=== PATIENT | male | born 1960 | race Caucasian/White ===

== ENCOUNTER → 2018-07-15 | Outpatient (CLI) | payer OTHER | LOC: RAD 16:01 | PROVIDERS: ATTEND Internal Medicine | DX: R60.9 Edema, unspecified (principal) | CPT/HCPCS: 93971 ==

== ENCOUNTER → 2019-03-31 | Day surgery (SDC) | payer OTHER ==
[2019-03-24 13:13] LABS: BASOPHILS % 0.2 % (0.0-1.0); EOSINOPHILS % 0.1 % (0.0-6.0); HEMATOCRIT 47.9 % (38.2-49.6); HEMOGLOBIN 17.6 g/dL (14.0-18.0); LYMPHOCYTES # (AUTO) 2.9 (1.0-3.2); LYMPHOCYTES % 16.1 % (18.0-39.1); MEAN CORPUSCULAR HEMOGLOBIN 35.6 pg (28-32); MEAN CORPUSCULAR HGB CONC 36.7 g/dL (31-35); MONOCYTES # (AUTO) 1.6 (0.2-0.8); MONOCYTES % 8.9 % (4.4-11.3); NEUTROPHILS # (AUTO) 13.2 (2.1-6.9); NEUTROPHILS % 73.2 % (38.7-80.0); PLATELET COUNT 203 x10e3/uL (140-360); RED BLOOD COUNT 4.94 x10e6/uL (4.3-5.7); RED CELL DISTRIBUTION WIDTH 11.9 % (11.7-14.4)
[2019-03-24 13:37] LABS: ALANINE AMINOTRANSFERASE 38 IU/L (0-55); ALBUMIN/GLOBULIN RATIO 1.1 (0.8-2.0); ALKALINE PHOSPHATASE 89 IU/L (40-150); ANION GAP 16.1 mmol/L (8-16); BLOOD UREA NITROGEN 15 mg/dL (7-26); BUN/CREATININE RATIO 14 (6-25); CALCIUM 10.2 mg/dL (8.4-10.2); CARBON DIOXIDE 29 mmol/L (22-29); CHLORIDE 94 mmol/L (98-107); CREATININE, SERUM 1.06 mg/dL (0.72-1.25); EST GLOMERULAR FILTRATION RATE > 60 ML/MIN (60-); GLUCOSE 135 mg/dL (74-118); POTASSIUM 4.1 mmol/L (3.5-5.1); SODIUM 135 mmol/L (136-145)
[2019-03-31] VITALS (8 sets, daily range): BP systolic 123–146; BP diastolic 79–89
[~2019-03-31] VITALS: Ht 182.9 cm; Wt 120.2 kg
[~2019-03-31] MED LIST: ALPRAZOLAM 0.5 MG TAB ONE; BENADRYL25 M1 PO; CENTRUM SILVER1 EAC3 PO; CETIRIZINE HCL10 MG PO; DIPHENHYDRAMINE HCL 25 MG CAP ONE; FENTANYL CITRATE/PF 100MCG/2 ML INJ ONE; FISH OIL 1,0001 EAC2 PO; FLONASE ALLERG9.9 ML; GLUCOSAMINE1000 MG PO; HEPARIN SOD (PORCINE) 1000 UNIT/ML 30ML ONE; HEPARIN SOD/SOD CHLORIDE 2,000 ML ONE; IOPAMIDOL 370 MG/ML 200 ML INFUS..BTL INJ ONE; LIDOCAINE HCL 2% LOCAL 20 ML VIAL ONE; MIDAZOLAM HCL 2 MG/2 ML VIAL ONE; NITROGLYCERIN/D5W 200 MCG/ML 250 ML ONE; SODIUM CHLORIDE 0.9% 1000ML 1,000 ML ONE; VERAPAMIL HCL 2.5 MG/ML 2 ML VIAL ONE; VITAMIN C1000 MG PO
--- OUTSIDE RECORDS SUMMARY | 2019-03-31 06:41 | XMS REPORT ---
Author Author [facility] Address Unknown Phone Unavailable Care Team Providers Care Teen Counselor Name Role Phone VERONA NAGY Unavailable Unavailable Problems This patient has no known problems. Allergies, Adverse Reactions, Alerts This patient has no known allergies or adverse reactions. Medications This patient has no known medications. Results Test Description Test Time Test Comments Text Results Atomic Results Result Comments ANKLE 3 + VIEWS RIGHT [place] [address] Patient Name: ALYSSA ALTAMIRANO MR #: [id number] : 1960 Age/Sex: 56/M Req #: [id number] [facility] Physician: Ordered by: VERONA NAGY MD Report #: [id number] Location: [facility] Room/Bed: Procedure: [id number] DX/ANKLE 3 + VIEWS RIGHT Exam Date: 03/28/17 Exam Time: 1500 REPORT STATUS: Signed PROCEDURE: X-RAY RIGHT ANKLE, COMPLETE TECHNIQUE: INDICATION: COMPARISON: None. FINDINGS: No acute displaced fracture or dislocation. Bone mineralization is within normal limits. No expansile lytic or sclerotic lesion. Soft tissues are unremarkable. CONCLUSION: No acute radiographic abnormality. Dictated by: Kali Rodriguez M.D. on 03/29/2017 at 7:42 Electronically approved by: Kali Rodriguez M.D. on 03/29/2017 at 7:42 Dictated By: KALI RODRIGUEZ MD 1 Transcribed By: HERMES on 03/29/17741 COPY TO: VERONA NAGY MD FOOT RIGHT COMPLETE [place] [address] Patient Name: ALYSSA ALTAMIRANO MR #: [id number] : 1960 Age/Sex: 56/M Req #: [id number] Adm Physician: Ordered by: VERONA NAGY MD Report #: [id number] Location: [facility] Room/Bed: Procedure: [id number] DX/FOOT RIGHT COMPLETE Exam Date: Exam Time: REPORT STATUS: Signed PROCEDURE: X-RAY RIGHT FOOT, COMPLETE COMPARISON: None. INDICATIONS: PAIN IN RIGHT ANKLE/FOOT FINDINGS: There are no fractures, dislocations, lytic or blastic lesions. The bones are well-mineralized. The soft-tissues are unremarkable. Mild valgus deformity of the second DIP joint. CONCLUSION: Mild valgus deformity of the second DIP joint. No acute osseous abnormality. Michael Alexander M.D. Dictated by: Michael Alexander M.D. on 03/28/2017 at 15:18 Electronically approved by: Michael Alexander M.D. on 03/28/2017 at 15:18 Dictated By: BALDEMAR ALEXANDER MD, MD 17 Transcribed By: HERMES on 03/28/171517 COPY TO: VERONA NAGY MD
--- NOTE | 2019-03-31 12:37 | Operative Report ---
DATE OF PROCEDURE: 03/31/2019 SURGEON: Elder Roland MD INDICATIONS: Coronary artery disease, abnormal stress test. PROCEDURES PERFORMED: 1. Left heart catheterization, selective coronary angiography. 2. Deployment of right wrist TR band. COMPLICATION: None. RECOMMENDATIONS: Medical therapy. DESCRIPTION OF PROCEDURE: Access was obtained in the right radial artery. A 5-Australian sheath was placed. Coronary angiography demonstrated 50% proximal left anterior descending artery stenosis. Remaining vessels had diffuse mild 20% to 30% stenosis. No critical occlusions were noted. No intervention necessary. LV end-diastolic pressure of 10. No gradient across the aortic valve on pullback. Right wrist sheath was removed. TR band applied. The patient discharged home the same day. Elder Roland MD KSB/MODL /[id number]
== END | disposition home or self-care (01) ==
LOC: CATH LAB 06:31
PROVIDERS: ATTEND Internal Medicine Interventional Cardiology
DX: I25.118 Atherosclerotic heart disease of native coronary artery with other forms of angina pectoris (principal); R94.39 Abnormal result of other cardiovascular function study; I87.2 Venous insufficiency (chronic) (peripheral); I10 Essential (primary) hypertension; Z01.812 Encounter for preprocedural laboratory examination; Z68.36 Body mass index [BMI] 36.0-36.9, adult; Z82.49 Family history of ischemic heart disease and other diseases of the circulatory system
CPT/HCPCS: 36415; 80053; 85025; 93454; C1769; C1887; J1644; J2001; J2250; J3010; J7030; Q9967; 99152

== ENCOUNTER 2019-07-02 20:00 | Observation (INO) | payer OTHER ==
[~2019-07-02] VITALS: Ht 182.9 cm; Wt 122.5 kg
[~2019-07-02 20:00] MED LIST changes: -ALPRAZOLAM 0.5 MG TAB ONE; -DIPHENHYDRAMINE HCL 25 MG CAP ONE; -FENTANYL CITRATE/PF 100MCG/2 ML INJ ONE; -HEPARIN SOD (PORCINE) 1000 UNIT/ML 30ML ONE; -HEPARIN SOD/SOD CHLORIDE 2,000 ML ONE; -IOPAMIDOL 370 MG/ML 200 ML INFUS..BTL INJ ONE; -LIDOCAINE HCL 2% LOCAL 20 ML VIAL ONE; -MIDAZOLAM HCL 2 MG/2 ML VIAL ONE; -NITROGLYCERIN/D5W 200 MCG/ML 250 ML ONE; -SODIUM CHLORIDE 0.9% 1000ML 1,000 ML ONE; -VERAPAMIL HCL 2.5 MG/ML 2 ML VIAL ONE
[2019-07-02] MEDS ORDERED: RIVAROXABAN 15 MG TABLET PO ONE (21:45)
--- NOTE | 2019-07-02 22:12 | Diagnostic Imaging Report ---
X-ray right knee 3 views HISTORY: Pain. COMPARISON: None available. FINDINGS: Bones: No acute displaced fracture. Osseous alignment is within normal limits. Joints: The joint spaces are well-maintained. Soft tissues: The soft tissues appear unremarkable. IMPRESSION: No acute radiographic osseous abnormality. Signed by: Alex Talavera DO on 07/02/2019 10:09 PM
[2019-07-02 22:21] LABS: BASOPHILS % 0.3 % (0.0-1.0); EOSINOPHILS # (AUTO) 0.1 (0.0-0.4); EOSINOPHILS % 0.6 % (0.0-6.0); HEMATOCRIT 42.9 % (38.2-49.6); HEMOGLOBIN 15.6 g/dL (14.0-18.0); LYMPHOCYTES % 22.7 % (18.0-39.1); MEAN CORPUSCULAR HEMOGLOBIN 33.9 pg (28-32); MEAN CORPUSCULAR HGB CONC 36.4 g/dL (31-35); MEAN CORPUSCULAR VOLUME 93.3 fL (81-99); MONOCYTES # (AUTO) 1.6 (0.2-0.8); MONOCYTES % 12.3 % (4.4-11.3); NEUTROPHILS # (AUTO) 8.3 (2.1-6.9); PLATELET COUNT 138 x10e3/uL (140-360); RED CELL DISTRIBUTION WIDTH 12.4 % (11.7-14.4)
[2019-07-02 22:36] LABS: ANION GAP 14.1 mmol/L (8-16); BLOOD UREA NITROGEN 12 mg/dL (7-26); BUN/CREATININE RATIO 13 (6-25); CALCIUM 9.1 mg/dL (8.4-10.2); CARBON DIOXIDE 29 mmol/L (22-29); CHLORIDE 90 mmol/L (98-107); CREATININE, SERUM 0.94 mg/dL (0.72-1.25); EST GLOMERULAR FILTRATION RATE > 60 ML/MIN (60-); GLUCOSE 145 mg/dL (74-118); POTASSIUM 4.1 mmol/L (3.5-5.1); SODIUM 129 mmol/L (136-145)
--- NOTE | 2019-07-03 01:14 | Diagnostic Imaging Report ---
EXAM: CT Chest WITH contrast (PE Protocol) INDICATION: DVT history of respiratory symptoms COMPARISON: None TECHNIQUE: Chest was scanned utilizing a multidetector helical scanner from the lung apex through the level of the diaphragm after administration of IV contrast. Thin section reconstructions were obtained with special concentration on the pulmonary arteries. Coronal and sagittal reformations were obtained. Pulmonary embolism protocol was performed. IV CONTRAST: 100 mL of Isovue 370 COMPLICATIONS: None RADIATION DOSE: Total DLP: 600 mGy*cm Estimated effective dose: (DLP x 0.014 x size factor) mSv CTDIvol has been reviewed. It is below the limits set by the Radiation Protocol Committee (RPC). Dose modulation, iterative reconstruction, and/or weight based adjustment of the mA/kV was utilized to reduce the radiation dose to as low as reasonably achievable. FINDINGS: LINES/ TUBES: None. LUNGS AND AIRWAYS: Nonocclusive filling defects within right lower lobe and upper lobe segmental pulmonary arteries. Airways are normal. Subtle reticular opacities along the mid/lower lung periphery, likely scarring/fibrosis. PLEURA: The pleural spaces are clear. HEART AND MEDIASTINUM: The thyroid gland is normal. No mediastinal, hilar or axillary lymphadenopathy. The heart is normal in size. There is no pericardial effusion. Calcific atherosclerosis aorta and major branches including the left anterior descending and left circumflex coronary arteries.. Main pulmonary artery measures 3.4 cm in diameter, mildly dilated, and the ascending aorta measures 4 cm, also mildly dilated the right ventricle is larger than the left ventricle. Mild flattening of the inner ventricular septum. UPPER ABDOMEN: Intact post surgical changes at the GE junction. BONES: There are degenerative changes in the spine. SOFT TISSUES: Unremarkable. IMPRESSION: Nonocclusive pulmonary emboli within right lower lobe and upper lobe segmental pulmonary arteries. There are also findings which can be seen with right heart strain. Borderline aneurysmal dilation of the ascending thoracic aorta. Finding of PE discussed with Dr. Covarrubias at 1:00 AM on 07/03/[address] Talavera via telephone. Signed by: Alex Talavera DO on 07/03/2019 1:11 AM
[2019-07-03] MEDS ORDERED: SODIUM CHLORIDE FLUSH 10 ML SYR INJ PRN (01:15)
--- NOTE | 2019-07-03 01:26 | NUR ---
Patient placed on hospital bed at this time.
[2019-07-03] MEDS ORDERED: IOPAMIDOL 370 MG/ML 200 ML INFUS..BTL INJ ONE (02:03)
[2019-07-03] MEDS ORDERED: SODIUM CHLORIDE 0.9% 50ML 50 ML ONE (02:04)
[2019-07-03] MEDS ORDERED: BREO ELLIPTA 11 EACH INH (02:11)
[2019-07-03] MEDS ORDERED: INDERAL XL120 MG PO (02:11)
[2019-07-03] MEDS ORDERED: PROAIR HFA INH8.5 GM INH (02:11)
[2019-07-03] MEDS ORDERED: LISINOPRIL-HCT1 EAC1 PO (02:11)
[2019-07-03] MEDS ORDERED: MONTELUKAST SOD10 MG PO (02:11)
[2019-07-03] MEDS ORDERED: TOBRAMYCIN-DEXAM5 ML OP (02:12)
--- NOTE | 2019-07-03 03:39 | NUR ---
Patient placed on CPAP at this time. No distress noted. RR even and unlabored. Patient has history of sleep apnea.
[2019-07-03 04:29] LABS: CREATINE KINASE MB 1.2 ng/mL (0-5.0)
--- NOTE | 2019-07-03 06:59 | NUR ---
Report to KARLY Harp.
--- NOTE | 2019-07-03 07:20 | NUR ---
desiree paged to see who is for cardiology consult for echo md desiree amin said no cardio consult needed for this pt; spoke with marissa in echo and will do echo first thing this am. jackson continuous pillowcase cutter to read.
[2019-07-03] MEDS ORDERED: MONTELUKAST SODIUM 10 MG TAB PO SCH (09:00)
[2019-07-03] MEDS: RIVAROXABAN 15 MG TABLET PO SCH ×2 (10:00→18:20)
--- NOTE | 2019-07-03 11:51 | History and Physical ---
REASON FOR ADMISSION: 1. Right leg DVT. 2. Pulmonary embolus. HISTORY OF PRESENT ILLNESS: The patient is a 58-year-old gentleman, in his usual state of health. He was getting up from chair where he had a right lower extremity pain and he felt like the leg seized up on him. He presented to the emergency room where he was noticed to have a DVT of the right leg proximally and then had a CT scan showing a small pulmonary embolus. He has been admitted for further evaluation. PAST MEDICAL HISTORY: Significant for hypertension. MEDICATIONS: See MAR. ALLERGIES: NONE. SOCIAL HISTORY: Nonsmoker, nondrinker. Lives at home with his . FAMILY HISTORY: Hypertension. PHYSICAL EXAMINATION: VITAL SIGNS: Temperature 96, pulse 74, blood pressure 126/74, sats 98% on room air. GENERAL: He is in no apparent distress. NECK: Supple. CARDIOVASCULAR: Regular rate and rhythm. LUNGS: Clear to auscultation bilaterally. ABDOMEN: Good bowel sounds. Soft, nontender. EXTREMITIES: No clubbing or cyanosis. NEUROLOGIC: Nonfocal. Right leg shows no swelling. ASSESSMENT AND PLAN: 1. Right leg deep vein thrombosis and pulmonary embolus. We will continue with Xarelto. 2. Hypertension. Continue with monitoring. 3. Hyponatremia. We will continue to monitor. 4. Leukocytosis. We will also continue to monitor. 5. Sleep apnea. Continue with his BiPAP. 6. Obesity. Continue with diet. Please see hospital chart for full details. MD ERICK Sierra/JESUS /[id number]
[2019-07-03 14:10] LABS: CREATINE KINASE MB 0.8 ng/mL (0-5.0)
[2019-07-03 15:39] LABS: ALANINE AMINOTRANSFERASE 15 IU/L (0-55); ALBUMIN 3.5 g/dL (3.5-5.0); ALBUMIN/GLOBULIN RATIO 1.1 (0.8-2.0); ALKALINE PHOSPHATASE 63 IU/L (40-150); ANION GAP 11.9 mmol/L (8-16); BLOOD UREA NITROGEN 10 mg/dL (7-26); BUN/CREATININE RATIO 10 (6-25); CALCIUM 9.3 mg/dL (8.4-10.2); CARBON DIOXIDE 31 mmol/L (22-29); CHLORIDE 92 mmol/L (98-107); CREATININE, SERUM 0.97 mg/dL (0.72-1.25); EST GLOMERULAR FILTRATION RATE > 60 ML/MIN (60-); GLUCOSE 136 mg/dL (74-118); POTASSIUM 3.9 mmol/L (3.5-5.1); SODIUM 131 mmol/L (136-145)
[2019-07-03 16:04] LABS: BASOPHILS % 0.3 % (0.0-1.0); EOSINOPHILS # (AUTO) 0.1 (0.0-0.4); EOSINOPHILS % 0.5 % (0.0-6.0); HEMATOCRIT 41.5 % (38.2-49.6); HEMOGLOBIN 14.6 g/dL (14.0-18.0); LYMPHOCYTES # (AUTO) 2.3 (1.0-3.2); LYMPHOCYTES % 23.6 % (18.0-39.1); MEAN CORPUSCULAR HEMOGLOBIN 33.8 pg (28-32); MEAN CORPUSCULAR HGB CONC 35.2 g/dL (31-35); MEAN CORPUSCULAR VOLUME 96.1 fL (81-99); MONOCYTES # (AUTO) 1.2 (0.2-0.8); MONOCYTES % 12.1 % (4.4-11.3); NEUTROPHILS % 62.5 % (38.7-80.0); PLATELET COUNT 130 x10e3/uL (140-360); RED BLOOD COUNT 4.32 x10e6/uL (4.3-5.7); RED CELL DISTRIBUTION WIDTH 12.7 % (11.7-14.4)
--- NOTE | 2019-07-03 19:15 | NUR ---
PT ARRIVED TO ROOM 213; PT AWAKE, ALERT, NO SIGNS OF DISTRESS. REPORT GIVEN TO PM RNLARRY.
--- NOTE | 2019-07-03 19:15 | NUR ---
Received patient from ER. Resp. even and unlabored. Skin warm and dry to touch. Pt AAOx3. Able to make needs known. at side. No SOB/resp. distress noted. Denies any pain/discomfort at this time. Telemetry #[address] Orientated to room. Denies any pain or discomfort at this time. Call light in reach. Bed in locked and low position. Non skid socks applies. will cont to monitor.
[2019-07-03 20:00] VITALS: BP 143/91
[2019-07-03 21:00] VITALS: BP 143/91
[2019-07-03 23:00] VITALS: BP 143/91
[2019-07-04] VITALS: BP 155/86
[2019-07-04 04:00] VITALS: BP 139/97
[2019-07-04 06:06] LABS: BASOPHILS # (AUTO) 0.1 (0.0-0.1); BASOPHILS % 0.5 % (0.0-1.0); EOSINOPHILS # (AUTO) 0.1 (0.0-0.4); EOSINOPHILS % 0.8 % (0.0-6.0); HEMATOCRIT 41.3 % (38.2-49.6); HEMOGLOBIN 14.3 g/dL (14.0-18.0); LYMPHOCYTES # (AUTO) 2.5 (1.0-3.2); LYMPHOCYTES % 25.5 % (18.0-39.1); MEAN CORPUSCULAR HEMOGLOBIN 33.6 pg (28-32); MEAN CORPUSCULAR HGB CONC 34.6 g/dL (31-35); MEAN CORPUSCULAR VOLUME 97.2 fL (81-99); MONOCYTES # (AUTO) 1.2 (0.2-0.8); MONOCYTES % 12.5 % (4.4-11.3); NEUTROPHILS # (AUTO) 5.8 (2.1-6.9); NEUTROPHILS % 59.6 % (38.7-80.0); PLATELET COUNT 119 x10e3/uL (140-360); RED BLOOD COUNT 4.25 x10e6/uL (4.3-5.7); RED CELL DISTRIBUTION WIDTH 12.6 % (11.7-14.4)
[2019-07-04 06:35] LABS: ANION GAP 13.2 mmol/L (8-16); BLOOD UREA NITROGEN 12 mg/dL (7-26); BUN/CREATININE RATIO 12 (6-25); CALCIUM 9.3 mg/dL (8.4-10.2); CARBON DIOXIDE 29 mmol/L (22-29); CHLORIDE 93 mmol/L (98-107); CREATININE, SERUM 1.04 mg/dL (0.72-1.25); EST GLOMERULAR FILTRATION RATE > 60 ML/MIN (60-); POTASSIUM 4.2 mmol/L (3.5-5.1); SODIUM 131 mmol/L (136-145)
[2019-07-04 06:42] LABS: GLUCOSE 126 mg/dL (74-118)
[2019-07-04 07:00] LABS: CREATINE KINASE MB 0.9 ng/mL (0-5.0)
--- NOTE | 2019-07-04 07:00 | NUR ---
RCD PT VAT BED PT IS ALERT AND ORIENTED RESTING ON BED ,IV PATENT BY SALINE FLUSH BED LOW AND LOCKED CALL LIGHT IN REACH
[2019-07-04] MEDS ORDERED: XARELTO10 MG PO ×2 (07:38→07:39)
[2019-07-04 07:42] VITALS: BP 135/88
[2019-07-04 08:30] VITALS: BP 135/88
[2019-07-04 09:12] LABS: PLATELET MORPHOLOGY COMMENT FEW LARGE
[2019-07-04 09:13] LABS: PLATELET ESTIMATE SLIGHTLY DECREASED
--- NOTE | 2019-07-04 10:10 | NUR ---
PT WENT HOME IN SAFE CONDITION WITH HIS
--- NOTE | 2019-07-05 04:45 | Discharge Summary ---
DISCHARGE DIAGNOSIS: 1. Deep vein thrombosis of right leg. 2. Pulmonary embolus. 3. Sleep apnea. HISTORY OF PRESENT ILLNESS AND HOSPITAL COURSE: See hospital chart for full details. The patient is a gentleman, who is getting up from chair where he notes right leg pain, noted to have right lower extremity DVT and had a CT scan showing a very small pulmonary embolus, even though the patient denies any chest pain or shortness of breath. The patient was started on Xarelto, was admitted, and had an echocardiogram done showed EF of 55%. The patient was feeling better at the time of discharge in regard to his right leg pain and swelling. He was discharged with Xarelto 15 mg b.i.d., for 21 days, then 20 mg once a day thereafter. He will follow up with me in two weeks and the other workup will be done as an outpatient. Please see hospital chart for full details. MD ERICK Sierra/JESUS /[id number]
== END 2019-07-04 10:06 | disposition home or self-care (01) ==
LOC: ER 20:00 → ERHOLD 07-03 01:12 → MED/SURG2 07-03 19:15
PROVIDERS: ADMIT Internal Medicine; ATTEND Internal Medicine
DX: I82.411 Acute embolism and thrombosis of right femoral vein (principal); I26.99 Other pulmonary embolism without acute cor pulmonale; I10 Essential (primary) hypertension; Z85.828 Personal history of other malignant neoplasm of skin; Z82.49 Family history of ischemic heart disease and other diseases of the circulatory system; E87.1 Hypo-osmolality and hyponatremia; D72.829 Elevated white blood cell count, unspecified; E66.9 Obesity, unspecified; Z68.36 Body mass index [BMI] 36.0-36.9, adult; G47.33 Obstructive sleep apnea (adult) (pediatric)
CPT/HCPCS: 36415 ×3; 71260; 73562; 80048 ×2; 80053; 82550 ×2; 82553 ×2; 84484 ×2; 85025 ×3; 93005; 93306; 93971; 94660 ×2; 99284; G0378 ×2; Q9967

== ENCOUNTER 2019-10-13 17:38 | Emergency (ER) | payer OTHER ==
[~2019-10-13] VITALS: Ht 182.9 cm; Wt 122.5 kg
[~2019-10-13 17:38] MED LIST changes: +BREO ELLIPTA 11 EACH INH; +INDERAL XL120 MG PO; +LISINOPRIL-HCT1 EAC1 PO; +MONTELUKAST SOD10 MG PO; +PROAIR HFA INH8.5 GM INH; +TOBRAMYCIN-DEXAM5 ML OP; +XARELTO10 MG PO
[2019-10-13] MEDS ORDERED: ASPIRIN 81 MG CHEW TAB PO ONE (18:45)
[2019-10-13 18:49] LABS: BASOPHILS # (AUTO) 0.1 (0.0-0.1); BASOPHILS % 0.5 % (0.0-1.0); EOSINOPHILS % 0.2 % (0.0-6.0); HEMATOCRIT 43.2 % (38.2-49.6); HEMOGLOBIN 15.5 g/dL (14.0-18.0); LYMPHOCYTES # (AUTO) 3.3 (1.0-3.2); LYMPHOCYTES % 21.7 % (18.0-39.1); MEAN CORPUSCULAR HGB CONC 35.9 g/dL (31-35); MEAN CORPUSCULAR VOLUME 97.5 fL (81-99); MONOCYTES # (AUTO) 1.8 (0.2-0.8); MONOCYTES % 12.2 % (4.4-11.3); NEUTROPHILS # (AUTO) 9.6 (2.1-6.9); NEUTROPHILS % 63.4 % (38.7-80.0); PLATELET COUNT 234 x10e3/uL (140-360); RED BLOOD COUNT 4.43 x10e6/uL (4.3-5.7)
[2019-10-13 18:54] LABS: INR 2.17; PARTIAL THROMBOPLASTIN TIME 30.9 seconds (23.8-35.5); PROTHROMBIN TIME 25.8 seconds (11.9-14.5)
[2019-10-13 19:01] LABS: ALBUMIN 3.9 g/dL (3.5-5.0); ALBUMIN/GLOBULIN RATIO 1.1 (0.8-2.0); ANION GAP 20.1 mmol/L (8-16); CALCIUM 9.7 mg/dL (8.4-10.2); CREATININE, SERUM 2.87 mg/dL (0.72-1.25); POTASSIUM 4.1 mmol/L (3.5-5.1)
[2019-10-13 19:07] LABS: CREATINE KINASE MB 1.1 ng/mL (0-5.0)
--- NOTE | 2019-10-13 19:35 | Diagnostic Imaging Report ---
Examination: Single AP view of the chest. COMPARISON: None. INDICATION: Very low blood pressure, chest pain IMPRESSION: 1. Lines and Tubes: None 2. Lungs are grossly clear. No consolidation or effusion. 3. Cardiomediastinal silhouette is normal. Pulmonary vasculature is normal. 4. No acute bony abnormalities. Signed by: Dr. Jose Stearns M.D. on 10/13/2019 7:31 PM
[2019-10-13] MEDS ORDERED: SODIUM CHLORIDE 0.9% 1000ML 1,000 ML ONE (19:41)
[2019-10-13] MEDS ORDERED: CEFTRIAXONE SOD 1 GM/NS 50 ML 50 ML IV ONE (19:45)
[2019-10-13] MEDS ORDERED: SODIUM CHLORIDE 0.9% 1000ML 1,000 ML IV ONE (19:45)
--- NOTE | 2019-10-13 20:03 | Emergency Department Note ---
History of Present Illnes History of Present Illness Chief Complaint: General Medicine Complaints History of Present Illness This is a 59 year old male FROM HOME WITH COMPLAINTS OF COUGH, AHCES AND PAINS, AND SHORTNESS OF BREATH X 2 MONTHS; PATIENT STATES HE WAS DIAGNOSED WITH A BLOOD CLOT IN HIS RIGHT LEG A COUPLE OF MONTHS AGO. PATIENT STATES HE HAS ALSO BEEN TREATED FOR SINUS ISSUES RECENTLY. PATIENT STATES THAT TODAY HE HAS BEEN FEELING WORSE THAN USUAL, . Historian: Patient Arrival Mode: Car Onset (how long ago): hour(s) (4) Location: all over Quality: weak, more sob, increased cough Radiation: Reports non-radiation Severity: moderate Onset quality: sudden (4) Duration (how long): hour(s) (4) Timing of current episode: constant Progression: unchanged Context: Reports hx of DVT/PE Relieving factors: none Exacerbating factors: none Associated symptoms: Reports chest pain, Reports cough, Reports malaise, Reports shortness of breath, Reports weakness Treatments prior to arrival: none Past Medical/Family History Physician Review I have reviewed the patient's past medical and family history. Any updates have been documented here. Past Medical History Recent Fever: No Clinical Suspicion of Infectio: Yes New/Unexplained Change in Ment: No Past Medical History: Hypertension, Cancer, DVT/PE Other Medical History: SINUS ISSUES SKIN CA Past Surgical History: Hernia Repair, Cataract Removal Other Surgery: 2 Hernia repairs, Skin Cancer removal from left ear, UPPP(removal of soft palate) Social History Smoking Cessation: Never Smoker Alcohol Use: None Any Illegal Drug Use: No Family History Family history of heart diseas: No Other Last Tetanus: UNKNOWN Review of Systems Review of Systems Constitutional: Reports as per HPI EENTM: Reports no symptoms Cardiovascular: Reports as per HPI Respiratory: Reports as per HPI Gastrointestinal: Reports no symptoms Genitourinary: Reports no symptoms Musculoskeletal: Reports no symptoms Integumentary: Reports no symptoms Neurological: Reports no symptoms Psychological: Reports no symptoms Endocrine: Reports no symptoms Hematological/Lymphatic: Reports no symptoms Physical Exam Related Data Allergies: Coded Allergies: No Known Drug Allergies (Verified Allergy, Unknown, 10/13/19) Triage Vital Signs Vital Signs Date Time Temp Pulse Resp B/P (MAP) Pulse Ox O2 Delivery O2 Flow Rate FiO2 10/13/19 18:01 97.2 109 18 106/85 95 Vital signs reviewed: Yes Physical Exam CONSTITUTIONAL Constitutional: Present well-developed, Present well-nourished HENT HENT: Present normocephalic, Present atraumatic, Present oropharynx clear/moist, Present nose normal HENT L/R: Present left ext ear normal, Present right ext ear normal EYES Eyes: Reports PERRL, Reports conjunctivae normal NECK Neck: Present ROM normal PULMONARY Pulmonary: Present effort normal, Present other (breath decresaed mildly bilateral, mild tachypnea) CARDIOVASCULAR Cardiovascular: Present regular rhythm, Present heart sounds normal, Present capillary refill normal, Present tachycardia (115) GASTROINTESTINAL Abdominal: Present soft, Present nontender, Present bowel sounds normal GENITOURINARY Genitourinary: Present exam deferred SKIN Skin: Present warm, Present dry MUSCULOSKELETAL Musculoskeletal: Present ROM normal NEUROLOGICAL Neurological: Present alert, Present oriented x 3, Present no gross motor or sensory deficits PSYCHOLOGICAL Psychological: Present mood/affect normal, Present judgement normal Results Laboratory Result Diagram: 10/13/19 1814 10/13/19 1814 Laboratory Laboratory Tests Test 10/13/19 18:14 White Blood Count 15.07 x10e3/uL (4.8-10.8) Red Blood Count 4.43 x10e6/uL (4.3-5.7) Hemoglobin 15.5 g/dL (14.0-18.0) Hematocrit 43.2 % (38.2-49.6) Mean Corpuscular Volume 97.5 fL (81-99) Mean Corpuscular Hemoglobin 35.0 pg (28-32) Mean Corpuscular Hemoglobin Concent 35.9 g/dL (31-35) Red Cell Distribution Width 14.0 % (11.7-14.4) Platelet Count 234 x10e3/uL (140-360) Neutrophils (%) (Auto) 63.4 % (38.7-80.0) Lymphocytes (%) (Auto) 21.7 % (18.0-39.1) Monocytes (%) (Auto) 12.2 % (4.4-11.3) Eosinophils (%) (Auto) 0.2 % (0.0-6.0) Basophils (%) (Auto) 0.5 % (0.0-1.0) Neutrophils # (Auto) 9.6 (2.1-6.9) Lymphocytes # (Auto) 3.3 (1.0-3.2) Monocytes # (Auto) 1.8 (0.2-0.8) Eosinophils # (Auto) 0.0 (0.0-0.4) Basophils # (Auto) 0.1 (0.0-0.1) Absolute Immature Granulocyte (auto 0.30 x10e3/uL (0-0.1) Prothrombin Time 25.8 seconds (11.9-14.5) Prothromb Time International Ratio 2.17 Activated Partial Thromboplast Time 30.9 seconds (23.8-35.5) Sodium Level 136 mmol/L (136-145) Potassium Level 4.1 mmol/L (3.5-5.1) Chloride Level 97 mmol/L (98-107) Carbon Dioxide Level 23 mmol/L (22-29) Anion Gap 20.1 mmol/L (8-16) Blood Urea Nitrogen 28 mg/dL (7-26) Creatinine 2.87 mg/dL (0.72-1.25) Estimat Glomerular Filtration Rate 23 ML/MIN (60-) BUN/Creatinine Ratio 10 (6-25) Glucose Level 147 mg/dL (74-118) Calcium Level 9.7 mg/dL (8.4-10.2) Total Bilirubin 1.1 mg/dL (0.2-1.2) Aspartate Amino Transf (AST/SGOT) 25 IU/L (5-34) Alanine Aminotransferase (ALT/SGPT) 29 IU/L (0-55) Alkaline Phosphatase 55 IU/L (40-150) Creatine Kinase 51 IU/L (30-200) Creatine Kinase MB 1.10 ng/mL (0-5.0) Troponin I 0.011 ng/mL (0-0.300) B-Type Natriuretic Peptide 55.5 pg/mL (0-100) Total Protein 7.5 g/dL (6.5-8.1) Albumin 3.9 g/dL (3.5-5.0) Globulin 3.6 g/dL (2.3-3.5) Albumin/Globulin Ratio 1.1 (0.8-2.0) Lab results reviewed: Yes Imaging Imaging results reviewed: Yes Impressions Examination: Single AP view of the chest. COMPARISON: None. INDICATION: Very low blood pressure, chest pain IMPRESSION: 1. Lines and Tubes: None 2. Lungs are grossly clear. No consolidation or effusion. 3. Cardiomediastinal silhouette is normal. Pulmonary vasculature is normal. 4. No acute bony abnormalities. Signed by: Dr. Isaak Escobedo M.D. on 10/13/2019 7:31 PM Dictated By: ISAAK ESCOBEDO MD 30 Transcribed By: JORGE A on 10/13/191930 Procedures 12 Lead ECG Interpretation ECG Interpretation : ECG: ECG 1 Electrical Equipment Assembler: Interpreted by ED physician Date: Oct 13, 2019 Time: 19:10 Rhythm: sinus tachycardia Rate: tachycardia BPM: 111 QRS axis: normal ST segments normal: No (non specific changes) T waves normal: No T wave inversion: V1, V2, V3, V4, V5 Other findings: no other findings Clinical Impression: abnormal ECG Assessment & Plan Medical Decision Making MDM Patient with history of DVT presents with sudden worsening of cough shortness of breath weakness starting today about 4 hours ago. Denies fever. at 1934 pt has following sirs criteria heart rate greater than 90, rr greater than 20 wbc 15k, sepsis work up initiated CBC, CMP, cardiac enzymes, lactic acid, blood cultures, EKG, Covid 19, ordered to eval for myocardial infarction, pulmonary embolus, pneumonia, pulmonary edema, Covid 19, electrolyte abnormality, sepsis. Cefepime 2 g IV ordered, 1 L normal saline IV ordered. no beds at this facility pt will require transfer for further evaluation and treatment i spoke with dr bee at [facility], he accepts pt for transfer Assessment & Plan Final Impression: (1) Acute renal insufficiency (2) Dyspnea (3) Leukocytosis Depart Disposition: TRANS TO OTHER [facility] F[facility] Last Vital Signs Date Time Temp Pulse Resp B/P (MAP) Pulse Ox O2 Delivery O2 Flow Rate FiO2 10/13/19 19:15 99.1 108 23 101/83 96 Home Meds Reported Medications Rivaroxaban (XARELTO) 10 Mg Tablet, 15 MG PO BID, #42 07/04/19 Rivaroxaban (XARELTO) 10 Mg Tablet, 15 MG PO BID, #42 07/04/19 Propranolol HCl (Inderal Xl) 120 Mg Cap.er.24h, 1 TAB PO HS 07/03/19 Lisinopril/Hydrochlorothiazide (LISINOPRIL-HCTZ 20-25 MG TAB) 1 Each Tablet, 1 TAB PO DAILY 07/03/19 Montelukast Sodium (MONTELUKAST SODIUM) 10 Mg Tablet, 10 MG PO DAILY 07/03/19 Albuterol Sulf* (PROAIR HFA INHALER*) 8.5 Gm Inh, 1 INH INH DAILY 07/03/19 Fluticasone/Vilanterol (Breo Ellipta 100-25 Mcg INH) 1 Each Blst.w.dev, 1 INH INH Q4HR PRN for SHORTNESS OF BREATH 07/03/19 Fluticasone Propionate (Flonase Allergy Relief) 9.9 Ml [place].susp, 1 SPRAY NA DAILY 03/24/19 Glucosamine Sulfate 2KCL (GLUCOSAMINE) 1,000 Mg Tablet, 1500 MG PO DAILY 03/24/19 Ascorbic Acid (VITAMIN C) 1,000 Mg Tablet, 1000 MG PO DAILY 03/24/19 Medications in the ED Aspirin 81 mg PRN ONCE PO ; Start 10/13/19 at 18:45; Stop 10/13/19 at 18:46; Status DC Ceftriaxone Sodium 50 ml @ 100 mls/hr ONCE ONCE IV ; Start 10/13/19 at 19:45; Stop 10/13/19 at 20:14 Sodium Chloride 1,000 ml @ 999 mls/hr Q1H1M ONCE IV Last administered on 10/13/19at 19:49; Admin Dose 999 MLS/HR; Start 10/13/19 at 19:45; Stop 10/13/19 at 20:45 Sodium Chloride 1,000 ml @ ud STK-MED ONCE .ROUTE ; Start 10/13/19 at 19:41; Stop 10/13/19 at 19:36; Status DC JAIDA CLEMENS MD Oct 13, 2019 20:03
--- NOTE | 2019-10-13 20:18 | NUR ---
{null, Transfer initiated to [facility] at 2015 }
--- NOTE | 2019-10-13 20:43 | NUR ---
{null, Doc to Doc at this time }
[2019-10-13 22:20] VITALS: BP 124/83
--- NOTE | 2019-10-13 23:37 | NUR ---
{null, [facility] CALLED FOR TRANSPORT 20MIN ETA }
== END 2019-10-14 00:32 | disposition other institution (70) ==
LOC: ER 17:38
DX: R06.00 Dyspnea, unspecified (principal); N28.9 Disorder of kidney and ureter, unspecified; D72.829 Elevated white blood cell count, unspecified; I10 Essential (primary) hypertension; Z86.718 Personal history of other venous thrombosis and embolism; Z85.828 Personal history of other malignant neoplasm of skin
CPT/HCPCS: 36415; 71045; 80053; 82550; 82553; 83605; 83880; 84484; 85025; 85610; 85730; 87040; 87635; 99284; J0696; J7030

== ENCOUNTER 2020-04-08 14:36 | Inpatient (IN) | payer OTHER ==
[~2020-04-08] VITALS: Ht 185.4 cm; Wt 132.0 kg
[2020-04-08 15:40] LABS: BASOPHILS # (AUTO) 0.1 (0.0-0.1); BASOPHILS % 0.4 % (0.0-1.0); EOSINOPHILS # (AUTO) 0.1 (0.0-0.4); EOSINOPHILS % 0.5 % (0.0-6.0); HEMATOCRIT 44.8 % (38.2-49.6); HEMOGLOBIN 15.9 g/dL (14.0-18.0); LYMPHOCYTES # (AUTO) 1.9 (1.0-3.2); LYMPHOCYTES % 8.6 % (18.0-39.1); MEAN CORPUSCULAR HEMOGLOBIN 35.5 pg (28-32); MEAN CORPUSCULAR HGB CONC 35.5 g/dL (31-35); MONOCYTES # (AUTO) 1.8 (0.2-0.8); MONOCYTES % 8.1 % (4.4-11.3); PLATELET COUNT 95 x10e3/uL (140-360); RED BLOOD COUNT 4.48 x10e6/uL (4.3-5.7); RED CELL DISTRIBUTION WIDTH 13.6 % (11.7-14.4)
[2020-04-08 16:06] LABS: ALANINE AMINOTRANSFERASE 30 IU/L (0-55); ALBUMIN/GLOBULIN RATIO 0.9 (0.8-2.0); ALKALINE PHOSPHATASE 51 IU/L (40-150); ANION GAP 13.6 mmol/L (8-16); BLOOD UREA NITROGEN 21 mg/dL (7-26); BUN/CREATININE RATIO 16 (6-25); CARBON DIOXIDE 27 mmol/L (22-29); CHLORIDE 87 mmol/L (98-107); CREATINE KINASE 303 IU/L (30-200); CREATININE, SERUM 1.31 mg/dL (0.72-1.25); EST GLOMERULAR FILTRATION RATE 56 ML/MIN (60-); GLUCOSE 212 mg/dL (74-118); POTASSIUM 3.6 mmol/L (3.5-5.1); SODIUM 124 mmol/L (136-145)
[2020-04-08 16:10] LABS: CALCIUM 6.9 mg/dL (8.4-10.2)
[2020-04-08] MEDS ORDERED: CEFTRIAXONE SOD 1 GM/NS 50 ML 50 ML IV ONE (16:45)
[2020-04-08] MEDS ORDERED: SODIUM CHLORIDE 0.9% 1000ML 1,000 ML IV STA (16:50)
[2020-04-08] MEDS ORDERED: CALCIUM GLUCONATE 10% INJ 4.65 MEQ in SODIUM CHLORIDE 0.9% 50ML 50 ML IV ONE ×2 (17:00→17:30)
[2020-04-08] MEDS ORDERED: SODIUM CHLORIDE 0.9% 100 ML ONE (17:12)
[2020-04-08] MEDS ORDERED: IOPAMIDOL 370 MG/ML 200 ML INFUS..BTL INJ ONE (17:12)
[2020-04-08 20:40] LABS: CLARITY,URINE SL CLOUDY (CLEAR); COLOR,URINE ORANGE (YELLOW); LEUKOCYTE ESTERASE ,URINE NEGATIVE (NEGATIVE); NITRITE,URINE POSITIVE (NEGATIVE); PROTEIN,URINE DIPSTICK 2+ (NEGATIVE)
[2020-04-08 20:41] LABS: KETONES,URINE 2+ (NEGATIVE); URINE UROBILINOGEN 0.2 mg/dL (0.2 - 1)
[2020-04-08 20:56] LABS: BACTERIA,URINE RARE /HPF; RBC,URINE 0-5 /HPF (0-5)
[2020-04-08 21:15] VITALS: BP 135/85
[2020-04-08 21:30] VITALS: BP 118/84
[2020-04-08] MEDS: SODIUM CHLORIDE 0.9% 1000ML 1,000 ML IV SCH (21:36)
[2020-04-09] VITALS: BP 130/86
[2020-04-09 04:00] VITALS: BP 130/87
[2020-04-09] MEDS: SODIUM CHLORIDE 0.9% 1000ML 1,000 ML IV SCH (05:01)
[2020-04-09] MEDS: CEFTRIAXONE SOD 1 GM/NS 50 ML 50 ML IV SCH (05:02)
[2020-04-09 06:39] LABS: BASOPHILS # (AUTO) 0.1 (0.0-0.1); BASOPHILS % 0.3 % (0.0-1.0); EOSINOPHILS % 0.2 % (0.0-6.0); HEMOGLOBIN 13.9 g/dL (14.0-18.0); LYMPHOCYTES # (AUTO) 1.9 (1.0-3.2); LYMPHOCYTES % 8.4 % (18.0-39.1); MEAN CORPUSCULAR HEMOGLOBIN 35.2 pg (28-32); MEAN CORPUSCULAR HGB CONC 35.6 g/dL (31-35); MEAN CORPUSCULAR VOLUME 98.7 fL (81-99); MONOCYTES % 8.8 % (4.4-11.3); NEUTROPHILS # (AUTO) 18.3 (2.1-6.9); NEUTROPHILS % 80.8 % (38.7-80.0); PLATELET COUNT 82 x10e3/uL (140-360); RED BLOOD COUNT 3.95 x10e6/uL (4.3-5.7); RED CELL DISTRIBUTION WIDTH 13.5 % (11.7-14.4)
[2020-04-09 07:04] LABS: ALANINE AMINOTRANSFERASE 24 IU/L (0-55); ALBUMIN 2.5 g/dL (3.5-5.0); ALBUMIN/GLOBULIN RATIO 0.8 (0.8-2.0); ALKALINE PHOSPHATASE 41 IU/L (40-150); AMYLASE 50 U/L (25-125); ANION GAP 13.8 mmol/L (8-16); BLOOD UREA NITROGEN 23 mg/dL (7-26); BUN/CREATININE RATIO 21 (6-25); CARBON DIOXIDE 23 mmol/L (22-29); CHLORIDE 91 mmol/L (98-107); CREATININE, SERUM 1.12 mg/dL (0.72-1.25); EST GLOMERULAR FILTRATION RATE > 60 ML/MIN (60-); GLUCOSE 192 mg/dL (74-118); LIPASE 123 U/L (8-78); MAGNESIUM 1.3 MG/DL (1.3-2.1); POTASSIUM 3.8 mmol/L (3.5-5.1); SODIUM 124 mmol/L (136-145)
[2020-04-09 07:07] LABS: CALCIUM 6.2 mg/dL (8.4-10.2)
[2020-04-09 08:00] VITALS: BP_SYST 124; BP_SYST 130; BP_DIAS 86; BP_DIAS 87
[2020-04-09] MEDS ORDERED: BENZONATATE 100 MG CAP PO PRN (08:30)
[2020-04-09] MEDS ORDERED: CALCIUM GLUCONATE 10% INJ 4.65 MEQ in SODIUM CHLORIDE 0.9% 50ML 50 ML IV ONE (09:00)
[2020-04-09] MEDS ORDERED: BENZONATATE 100 MG CAP PO SCH (09:00)
[2020-04-09] MEDS ORDERED: SODIUM CHLORIDE 0.9% 100 ML ONE (12:11)
[2020-04-09] MEDS ORDERED: GADOBENATE DIMEGLUMINE 1 ML IV ONE (12:11)
[2020-04-09] MEDS ORDERED: LACTATED RINGER'S 1,000 ML INJ SCH (13:45)
[2020-04-09] MEDS: ALBUTEROL/IPRATROPIUM 3 ML NEB NEB SCH ×3 (14:50→22:15)
[2020-04-09 16:00] VITALS: BP 129/82
[2020-04-09] MEDS ORDERED: COSYNTROPIN 0.25 MG/VIAL VIAL INJ STA (16:39)
[2020-04-09] MEDS ORDERED: LACTATED RINGER'S 1,000 ML ONE (17:34)
[2020-04-09] MEDS ORDERED: MAGNESIUM SULF 1GRAM/DEXTROSE 100 ML IV SCH (18:00)
[2020-04-09] MEDS ORDERED: SODIUM CHLORIDE 0.9% IV PRN (18:00)
[2020-04-09] MEDS ORDERED: CALCIUM GLUCONATE IV PRN (18:00)
[2020-04-09] MEDS: LACTATED RINGER'S 1,000 ML INJ SCH (18:04)
[2020-04-09] MEDS ORDERED: CALCIUM CARBONATE 500 MG CHEWABLE TABS PO SCH (18:30)
[2020-04-09] MEDS: CALCIUM GLUCONATE 10% INJ 4.65 MEQ in SODIUM CHLORIDE 0.9% 50ML 50 ML IV SCH ×2 (18:37→22:29)
[2020-04-09] MEDS: CALCITRIOL 0.25 MCG CAP PO SCH (18:37)
[2020-04-09 18:46] LABS: FREE THYROXINE INDEX 2.2195 (1.4-3.8); THYROID STIMULATING HORMONE 1.2 uIU/mL (0.350-4.940)
[2020-04-09 20:00] VITALS: BP 167/105
[2020-04-09] MEDS: MORPHINE SULFATE INJ 4 MG/ML INJ 1ML IV PRN (20:14)
[2020-04-09 21:00] VITALS: BP 167/105
[2020-04-09] MEDS ORDERED: ZOLPIDEM TARTRATE 5 MG TAB PO PRN (21:00)
[2020-04-09] MEDS: MAGNESIUM SULF 1GRAM/DEXTROSE 100 ML IV SCH ×2 (21:13→22:29)
[2020-04-09] MEDS: METOPROLOL TARTRATE INJ 1 MG/ML VIAL IV SCH (21:13)
[2020-04-09 21:32] LABS: CLARITY,URINE SL CLOUDY (CLEAR); COLOR,URINE AMBER (YELLOW); KETONES,URINE 2+ (NEGATIVE); LEUKOCYTE ESTERASE ,URINE NEGATIVE (NEGATIVE); NITRITE,URINE POSITIVE (NEGATIVE); PROTEIN,URINE DIPSTICK 1+ (NEGATIVE); URINE UROBILINOGEN 0.2 mg/dL (0.2 - 1)
[2020-04-09 21:41] LABS: BACTERIA,URINE MANY /HPF; EPITHELIAL CELLS,URINE FEW /LPF; RBC,URINE 0-5 /HPF (0-5); WBC,URINE (MAN) 0-5 /HPF (0-5)
[2020-04-10] VITALS (9 sets, daily range): BP systolic 139–168; BP diastolic 78–116
[2020-04-10] MEDS: CEFTRIAXONE SOD 1 GM/NS 50 ML 50 ML IV SCH (01:55)
[2020-04-10] MEDS: LACTATED RINGER'S 1,000 ML INJ SCH (01:56)
[2020-04-10] MEDS ORDERED: HYDROXYZINE HCL 50 MG/ML VIAL IM PRN (04:00)
[2020-04-10] MEDS ORDERED: PROMETHAZINE HCL (IM) 25 MG/ML VIAL IM ONE (04:15)
[2020-04-10] MEDS: LORAZEPAM INJ 2 MG/ML VIAL IV PRN ×3 (04:19→23:39)
[2020-04-10] MEDS ORDERED: SODIUM CHLORIDE 0.9% 1000ML 1,000 ML ONE (04:20)
[2020-04-10] MEDS ORDERED: THIAMINE HCL INJ 100 MG/ML 2ML VIAL ONE (04:20)
[2020-04-10] MEDS ORDERED: FOLIC ACID 5 MG/ML VIAL ONE (04:22)
[2020-04-10] MEDS ORDERED: MULTIVITAMINS INJECTION ONE (04:22)
[2020-04-10] MEDS: MULTIVITAMINS- 12 INJECTION 10 ML, FOLIC ACID MDV 5 MG, THIAMINE HCL INJ 100 MG in SODI... IV SCH ×2 (04:42→23:24)
[2020-04-10] MEDS: ENOXAPARIN SOD INJ 120 MG/0.8 ML SYR SC SCH ×2 (04:59→17:53)
[2020-04-10] MEDS: METOPROLOL TARTRATE INJ 1 MG/ML VIAL IV SCH ×3 (04:59→20:21)
[2020-04-10] MEDS: CALCIUM GLUCONATE 10% INJ 4.65 MEQ in SODIUM CHLORIDE 0.9% 50ML 50 ML IV SCH ×3 (05:00→17:53)
[2020-04-10 05:12] LABS: BASOPHILS % 0.2 % (0.0-1.0); EOSINOPHILS % 0.2 % (0.0-6.0); HEMATOCRIT 36.1 % (38.2-49.6); HEMOGLOBIN 12.4 g/dL (14.0-18.0); LYMPHOCYTES % 6.6 % (18.0-39.1); MEAN CORPUSCULAR HEMOGLOBIN 35.3 pg (28-32); MEAN CORPUSCULAR HGB CONC 34.3 g/dL (31-35); MEAN CORPUSCULAR VOLUME 102.8 fL (81-99); MONOCYTES # (AUTO) 1.4 (0.2-0.8); MONOCYTES % 9.3 % (4.4-11.3); NEUTROPHILS # (AUTO) 12.6 (2.1-6.9); NEUTROPHILS % 82.6 % (38.7-80.0); PLATELET COUNT 71 x10e3/uL (140-360); RED BLOOD COUNT 3.51 x10e6/uL (4.3-5.7); RED CELL DISTRIBUTION WIDTH 13.3 % (11.7-14.4)
[2020-04-10 06:18] LABS: ALANINE AMINOTRANSFERASE 21 IU/L (0-55); ALBUMIN 2.3 g/dL (3.5-5.0); ALBUMIN/GLOBULIN RATIO 0.7 (0.8-2.0); ALKALINE PHOSPHATASE 53 IU/L (40-150); ANION GAP 16.3 mmol/L (8-16); BLOOD UREA NITROGEN 17 mg/dL (7-26); BUN/CREATININE RATIO 22 (6-25); CALCIUM 7.1 mg/dL (8.4-10.2); CARBON DIOXIDE 20 mmol/L (22-29); CHLORIDE 90 mmol/L (98-107); CREATININE, SERUM 0.76 mg/dL (0.72-1.25); EST GLOMERULAR FILTRATION RATE > 60 ML/MIN (60-); GLUCOSE 151 mg/dL (74-118); POTASSIUM 3.3 mmol/L (3.5-5.1); SODIUM 123 mmol/L (136-145)
[2020-04-10] MEDS ORDERED: POTASSIUM CHLORIDE 20MEQ/100ML 200 ML IV ONE (06:30)
[2020-04-10] MEDS ORDERED: MAGNESIUM SULFATE 2GM/50ML 50 ML IV ONE ×2 (06:30→10:45)
[2020-04-10 06:36] LABS: CHOL/HDL RATIO 4.9 (3.9-4.7)
[2020-04-10] MEDS: ALBUTEROL/IPRATROPIUM 3 ML NEB NEB SCH ×3 (07:10→20:40)
[2020-04-10] MEDS: MEROPENEM 1GM 100 ML IV SCH ×3 (08:12→20:21)
[2020-04-10] MEDS: FLUTICASONE PROPIONATE NASAL SPRAY NS SCH ×2 (09:00→17:00)
[2020-04-10] MEDS: MORPHINE SULFATE INJ 4 MG/ML INJ 1ML IV PRN ×2 (10:26→20:22)
[2020-04-10] MEDS: KCL 20MEQ/.9 SOD CHL 1,000 ML IV SCH ×3 (10:26→20:22)
[2020-04-10] MEDS: ONDANSETRON HCL INJ 2MG/ML 2ML 2 MG/ML VIAL IV PRN (10:26)
[2020-04-10] MEDS ORDERED: CALCIUM GLUCONATE IV SCH ×2 (11:53→23:26)
[2020-04-10] MEDS ORDERED: SODIUM CHLORIDE 0.9% IV SCH ×2 (11:53→23:26)
[2020-04-10] MEDS ORDERED: MEROPENEM 1GM 100 ML IV SCH (14:00)
[2020-04-10] MEDS ORDERED: SODIUM CHLORIDE 0.9% 50ML 50 ML ONE (17:28)
[2020-04-10] MEDS ORDERED: IOPAMIDOL 370 MG/ML 200 ML INFUS..BTL INJ ONE (17:28)
[2020-04-10] MEDS ORDERED: HYDRALAZINE HCL 20 MG/ML VIAL IV PRN (20:30)
[2020-04-10] MEDS ORDERED: THIAMINE HCL INJ 100 MG/ML 2ML VIAL IV ONE (21:45)
[2020-04-10] MEDS: HYDRALAZINE HCL 20 MG/ML VIAL IV PRN (23:04)
[2020-04-10] MEDS ORDERED: CALCIUM GLUCONATE 10% INJ 0.465 MEQ/ML VIAL ONE ×2 (23:18→23:49)
[2020-04-11] VITALS (8 sets, daily range): BP systolic 138–168; BP diastolic 84–100
[2020-04-11] MEDS: HYDRALAZINE HCL 20 MG/ML VIAL IV PRN (03:02)
[2020-04-11] MEDS: MORPHINE SULFATE INJ 4 MG/ML INJ 1ML IV PRN (03:02)
[2020-04-11] MEDS ORDERED: METOPROLOL TARTRATE INJ 1 MG/ML VIAL IV SCH ×2 (04:00→06:00)
[2020-04-11] MEDS: LABETALOL HCL 5 MG/ML 20ML VIAL IV PRN (04:37)
[2020-04-11] MEDS: KCL 20MEQ/.9 SOD CHL 1,000 ML IV SCH ×3 (05:08→21:07)
[2020-04-11] MEDS: LORAZEPAM INJ 2 MG/ML VIAL IV PRN ×2 (05:37→23:08)
[2020-04-11] MEDS: ENOXAPARIN SOD INJ 120 MG/0.8 ML SYR SC SCH ×2 (05:37→18:20)
[2020-04-11] MEDS: MEROPENEM 1GM 100 ML IV SCH ×3 (05:37→21:07)
[2020-04-11 05:39] LABS: BASOPHILS % 0.2 % (0.0-1.0); EOSINOPHILS % 0.1 % (0.0-6.0); HEMATOCRIT 34.2 % (38.2-49.6); HEMOGLOBIN 12.1 g/dL (14.0-18.0); LYMPHOCYTES # (AUTO) 0.9 (1.0-3.2); LYMPHOCYTES % 6.8 % (18.0-39.1); MEAN CORPUSCULAR HEMOGLOBIN 35.5 pg (28-32); MEAN CORPUSCULAR HGB CONC 35.4 g/dL (31-35); MEAN CORPUSCULAR VOLUME 100.3 fL (81-99); MONOCYTES # (AUTO) 1.8 (0.2-0.8); MONOCYTES % 13.3 % (4.4-11.3); NEUTROPHILS # (AUTO) 10.8 (2.1-6.9); NEUTROPHILS % 78.5 % (38.7-80.0); PLATELET COUNT 107 x10e3/uL (140-360); RED BLOOD COUNT 3.41 x10e6/uL (4.3-5.7); RED CELL DISTRIBUTION WIDTH 13.3 % (11.7-14.4)
[2020-04-11 05:59] LABS: MAGNESIUM 1.9 MG/DL (1.3-2.1); PHOSPHORUS 2.1 MG/DL (2.3-4.7)
[2020-04-11 06:04] LABS: ALANINE AMINOTRANSFERASE 19 IU/L (0-55); ALBUMIN 2.3 g/dL (3.5-5.0); ALBUMIN/GLOBULIN RATIO 0.7 (0.8-2.0); ALKALINE PHOSPHATASE 54 IU/L (40-150); AMYLASE 21 U/L (25-125); ANION GAP 14.3 mmol/L (8-16); BLOOD UREA NITROGEN 13 mg/dL (7-26); BUN/CREATININE RATIO 17 (6-25); CALCIUM 8.5 mg/dL (8.4-10.2); CARBON DIOXIDE 22 mmol/L (22-29); CHLORIDE 96 mmol/L (98-107); CREATININE, SERUM 0.75 mg/dL (0.72-1.25); EST GLOMERULAR FILTRATION RATE > 60 ML/MIN (60-); GLUCOSE 159 mg/dL (74-118); LIPASE 27 U/L (8-78); POTASSIUM 3.3 mmol/L (3.5-5.1); SODIUM 129 mmol/L (136-145)
[2020-04-11] MEDS ORDERED: CALCITRIOL 0.5 MCG CAP PO SCH (09:00)
[2020-04-11] MEDS ORDERED: SODIUM CHLORIDE 0.9% IV SCH ×3 (09:00→23:18)
[2020-04-11] MEDS ORDERED: THIAMINE HCL INJ 100 MG/ML 2ML VIAL IV SCH (09:00)
[2020-04-11] MEDS ORDERED: CALCIUM GLUCONATE IV SCH ×3 (09:00→23:18)
[2020-04-11] MEDS: FLUTICASONE PROPIONATE NASAL SPRAY NS SCH ×2 (09:05→18:20)
[2020-04-11] MEDS: CALCITRIOL 0.25 MCG CAP PO SCH (09:05)
[2020-04-11] MEDS: METOPROLOL TARTRATE INJ 1 MG/ML VIAL IV SCH ×3 (10:13→21:07)
[2020-04-11] MEDS: CALCIUM CARBONATE 500 MG CHEWABLE TABS PO SCH ×2 (10:45→18:20)
[2020-04-11 10:55] LABS: LYMPHOCYTES % (MANUAL) 4 % (19-48); MONOCYTES % (MANUAL) 15 % (3.4-9.0); NEUTROPHILS % (MANUAL) 81 % (40-74); PLATELET ESTIMATE SLIGHTLY INCREASED; PLATELET MORPHOLOGY COMMENT NORMAL; RBC MORPHOLOGY COMMENT NORMAL
[2020-04-11] MEDS ORDERED: POTASSIUM PHOSPHATE 15 MM in SODIUM CHLORIDE 0.9% 250ML 250 ML IV ONE (13:30)
[2020-04-11] MEDS ORDERED: POTASSIUM PHOSPHATE 20 MM in SODIUM CHLORIDE 0.9% 250ML 250 ML IV ONE (14:00)
[2020-04-11] MEDS: FUROSEMIDE INJ 10 MG/ML 2 ML VIAL IV SCH ×2 (15:07→18:20)
[2020-04-11] MEDS: MULTIVITAMINS- 12 INJECTION 10 ML, FOLIC ACID MDV 5 MG, THIAMINE HCL INJ 100 MG in SODI... IV SCH (21:07)
[2020-04-12] VITALS (13 sets, daily range): BP systolic 112–156; BP diastolic 71–99
[2020-04-12] MEDS: MORPHINE SULFATE INJ 4 MG/ML INJ 1ML IV PRN (01:28)
[2020-04-12] MEDS ORDERED: DEXMEDETOMIDINE HCL 200 MCG in SODIUM CHLORIDE 0.9% 50ML 48 ML IV SCH (01:45)
[2020-04-12] MEDS ORDERED: SODIUM CHLORIDE 0.9% 250ML 250 ML ONE (01:53)
[2020-04-12] MEDS ORDERED: DEXMEDETOMIDINE 200MCG/NS 50ML 0 ML IV ONE (02:04)
[2020-04-12 03:30] LABS: BASOPHILS % 0.3 % (0.0-1.0); EOSINOPHILS # (AUTO) 0.1 (0.0-0.4); EOSINOPHILS % 0.5 % (0.0-6.0); HEMATOCRIT 29.6 % (38.2-49.6); LYMPHOCYTES # (AUTO) 0.8 (1.0-3.2); MEAN CORPUSCULAR HGB CONC 33.8 g/dL (31-35); MONOCYTES # (AUTO) 1.2 (0.2-0.8); MONOCYTES % 11.6 % (4.4-11.3); NEUTROPHILS # (AUTO) 7.8 (2.1-6.9); NEUTROPHILS % 78.7 % (38.7-80.0); PLATELET COUNT 106 x10e3/uL (140-360); RED BLOOD COUNT 2.86 x10e6/uL (4.3-5.7); RED CELL DISTRIBUTION WIDTH 13.5 % (11.7-14.4)
[2020-04-12] MEDS ORDERED: DEXMEDETOMIDINE 200MCG/NS 50ML 100 ML IV ONE (03:39)
[2020-04-12] MEDS ORDERED: DEXMEDETOMIDINE 200MCG/NS 50ML 50 ML IV ONE ×2 (03:42→06:28)
[2020-04-12 03:46] LABS: MEAN CORPUSCULAR VOLUME 103.5 fL (81-99)
[2020-04-12] MEDS: METOPROLOL TARTRATE INJ 1 MG/ML VIAL IV SCH ×4 (04:00→22:11)
[2020-04-12] MEDS: PHENAZOPYRIDINE HCL 100 MG TAB PO SCH ×3 (04:35→18:51)
[2020-04-12 04:43] LABS: ABG HCO3 25 mmol/L (22-26); ABG PCO2 46 mmHg (35-45); ABG PH 7.35 (7.35-7.45); ABG PO2 120 mmHg (80-105); ABG TCO2 27
[2020-04-12] MEDS: ENOXAPARIN SOD INJ 120 MG/0.8 ML SYR SC SCH ×2 (05:00→20:11)
[2020-04-12] MEDS: MEROPENEM 1GM 100 ML IV SCH (05:00)
[2020-04-12] MEDS: KCL 20MEQ/.9 SOD CHL 1,000 ML IV SCH ×2 (05:40→14:56)
[2020-04-12 06:36] LABS: ALANINE AMINOTRANSFERASE 18 IU/L (0-55); ALBUMIN/GLOBULIN RATIO 0.7 (0.8-2.0); ALKALINE PHOSPHATASE 40 IU/L (40-150); ANION GAP 12.5 mmol/L (8-16); BLOOD UREA NITROGEN 12 mg/dL (7-26); BUN/CREATININE RATIO 19 (6-25); CALCIUM 8.1 mg/dL (8.4-10.2); CARBON DIOXIDE 23 mmol/L (22-29); CHLORIDE 101 mmol/L (98-107); CREATININE, SERUM 0.64 mg/dL (0.72-1.25); EST GLOMERULAR FILTRATION RATE > 60 ML/MIN (60-); GLUCOSE 135 mg/dL (74-118); POTASSIUM 3.5 mmol/L (3.5-5.1); SODIUM 133 mmol/L (136-145)
[2020-04-12] MEDS ORDERED: DEXMEDETOMIDINE 200MCG/NS 50ML 50 ML IV SCH (06:45)
[2020-04-12] MEDS: CALCIUM CARBONATE 500 MG CHEWABLE TABS PO SCH ×3 (08:00→19:02)
[2020-04-12] MEDS: FLUTICASONE PROPIONATE NASAL SPRAY NS SCH ×2 (09:00→17:00)
[2020-04-12] MEDS: IPRATROPIUM BROMIDE 0.02% 2.5 ML NEB NEB SCH ×2 (09:00→17:20)
[2020-04-12] MEDS: LEVALBUTEROL HCL SOLN NEBU 1.25 MG/3 ML NEB INH SCH ×2 (09:00→17:20)
[2020-04-12] MEDS: CALCITRIOL 0.25 MCG CAP PO SCH ×2 (09:00→18:51)
[2020-04-12] MEDS: FUROSEMIDE INJ 10 MG/ML 2 ML VIAL IV SCH ×2 (09:20→17:00)
[2020-04-12] MEDS ORDERED: BUMETANIDE INJ 0.25MG/ML 4ML VIAL IV ONE (16:30)
[2020-04-12 18:23] LABS: ABG HCO3 24 mmol/L (22-26); ABG PCO2 32 mmHg (35-45); ABG PH 7.48 (7.35-7.45); ABG PO2 94 mmHg (80-105); ABG TCO2 25
[2020-04-12] MEDS: MULTIVITAMINS- 12 INJECTION 10 ML, FOLIC ACID MDV 5 MG, THIAMINE HCL INJ 100 MG in SODI... IV SCH (18:52)
[2020-04-12] MEDS: CALCIUM GLUCONATE IV SCH (18:55)
[2020-04-12] MEDS: SODIUM CHLORIDE 0.9% IV SCH (18:55)
[2020-04-12] MEDS: ONDANSETRON HCL INJ 2MG/ML 2ML 2 MG/ML VIAL IV PRN (22:12)
[2020-04-12] MEDS: MEROPENEM 500MG/ NS 50ML 50 ML IV SCH (22:12)
[2020-04-13] VITALS (9 sets, daily range): BP systolic 125–164; BP diastolic 67–99
[2020-04-13] MEDS: IPRATROPIUM BROMIDE 0.02% 2.5 ML NEB NEB SCH ×4 (01:10→20:45)
[2020-04-13] MEDS: LEVALBUTEROL HCL SOLN NEBU 1.25 MG/3 ML NEB INH SCH ×4 (01:10→19:40)
[2020-04-13 05:57] LABS: BASOPHILS # (AUTO) 0.1 (0.0-0.1); BASOPHILS % 0.7 % (0.0-1.0); EOSINOPHILS % 0.3 % (0.0-6.0); HEMATOCRIT 35.5 % (38.2-49.6); HEMOGLOBIN 12.2 g/dL (14.0-18.0); LYMPHOCYTES # (AUTO) 1.6 (1.0-3.2); LYMPHOCYTES % 14.1 % (18.0-39.1); MEAN CORPUSCULAR HGB CONC 34.4 g/dL (31-35); MEAN CORPUSCULAR VOLUME 101.7 fL (81-99); MONOCYTES # (AUTO) 1.2 (0.2-0.8); MONOCYTES % 11.1 % (4.4-11.3); NEUTROPHILS % 72.3 % (38.7-80.0); PLATELET COUNT 177 x10e3/uL (140-360); RED BLOOD COUNT 3.49 x10e6/uL (4.3-5.7); RED CELL DISTRIBUTION WIDTH 13.3 % (11.7-14.4)
[2020-04-13] MEDS: MEROPENEM 500MG/ NS 50ML 50 ML IV SCH ×3 (06:13→23:11)
[2020-04-13] MEDS: ENOXAPARIN SOD INJ 120 MG/0.8 ML SYR SC SCH ×2 (06:13→17:58)
[2020-04-13] MEDS: PHENAZOPYRIDINE HCL 100 MG TAB PO SCH ×3 (06:13→23:12)
[2020-04-13] MEDS: METOPROLOL TARTRATE INJ 1 MG/ML VIAL IV SCH ×2 (06:13→13:59)
[2020-04-13 06:21] LABS: ALANINE AMINOTRANSFERASE 19 IU/L (0-55); ALBUMIN 2.3 g/dL (3.5-5.0); ALBUMIN/GLOBULIN RATIO 0.6 (0.8-2.0); ALKALINE PHOSPHATASE 59 IU/L (40-150); ANION GAP 18.3 mmol/L (8-16); BLOOD UREA NITROGEN 12 mg/dL (7-26); BUN/CREATININE RATIO 16 (6-25); CALCIUM 9.2 mg/dL (8.4-10.2); CARBON DIOXIDE 21 mmol/L (22-29); CHLORIDE 95 mmol/L (98-107); CREATININE, SERUM 0.76 mg/dL (0.72-1.25); EST GLOMERULAR FILTRATION RATE > 60 ML/MIN (60-); GLUCOSE 187 mg/dL (74-118); POTASSIUM 3.3 mmol/L (3.5-5.1); SODIUM 131 mmol/L (136-145)
[2020-04-13 06:46] LABS: PHOSPHORUS 3.6 MG/DL (2.3-4.7)
[2020-04-13 07:55] LABS: FERRITIN 1848.59 ng/mL (21.81-274.66)
[2020-04-13] MEDS ORDERED: MAGNESIUM SULFATE 2GM/50ML 50 ML IV ONE (08:00)
[2020-04-13] MEDS ORDERED: BUMETANIDE INJ 0.25MG/ML 4ML VIAL IV SCH ×2 (09:00→20:00)
[2020-04-13] MEDS: CALCITRIOL 0.25 MCG CAP PO SCH (09:18)
[2020-04-13] MEDS: FLUTICASONE PROPIONATE NASAL SPRAY NS SCH ×2 (09:18→17:30)
[2020-04-13] MEDS: FERROUS SULFATE 325 MG TAB PO SCH (09:21)
[2020-04-13] MEDS: CALCIUM CARBONATE 500 MG CHEWABLE TABS PO SCH ×3 (09:33→17:32)
[2020-04-13] MEDS ORDERED: METOPROLOL TARTRATE INJ 1 MG/ML VIAL IV NR (09:45)
[2020-04-13] MEDS ORDERED: METOPROLOL TARTRATE INJ 1 MG/ML VIAL ONE (09:53)
[2020-04-13] MEDS ORDERED: MAGNESIUM SULF 1GRAM/DEXTROSE 100 ML IV ONE (10:30)
[2020-04-13] MEDS ORDERED: BUMETANIDE INJ 0.25MG/ML 4ML VIAL IV ONE (12:15)
[2020-04-13] MEDS ORDERED: POTASSIUM CHLORIDE 20MEQ/100ML 100 ML IV ONE ×2 (12:30→15:00)
[2020-04-13] MEDS: TRAMADOL HCL 50 MG TAB PO PRN (13:57)
[2020-04-13] MEDS: CALCIUM GLUCONATE IV SCH (15:35)
[2020-04-13] MEDS: SODIUM CHLORIDE 0.9% IV SCH (15:35)
[2020-04-13] MEDS: ACETAMINOPHEN 325 MG TAB PO PRN (15:50)
[2020-04-13] MEDS ORDERED: METOPROLOL TARTRATE INJ 1 MG/ML VIAL IV PRN (16:45)
[2020-04-13] MEDS: MULTIVITAMINS- 12 INJECTION 10 ML, FOLIC ACID MDV 5 MG, THIAMINE HCL INJ 100 MG in SODI... IV SCH (17:58)
[2020-04-13] MEDS: METOPROLOL TARTRATE 50 MG TAB PO SCH (23:11)
[2020-04-13] MEDS: BUMETANIDE INJ 0.25MG/ML 4ML VIAL IV SCH (23:11)
[2020-04-14] VITALS (8 sets, daily range): BP systolic 149–176; BP diastolic 55–127
[2020-04-14] MEDS: IPRATROPIUM BROMIDE 0.02% 2.5 ML NEB NEB SCH ×4 (01:00→20:45)
[2020-04-14] MEDS: LEVALBUTEROL HCL SOLN NEBU 1.25 MG/3 ML NEB INH SCH ×4 (01:00→20:45)
[2020-04-14 04:38] LABS: BASOPHILS # (AUTO) 0.1 (0.0-0.1); BASOPHILS % 0.7 % (0.0-1.0); EOSINOPHILS # (AUTO) 0.1 (0.0-0.4); EOSINOPHILS % 0.9 % (0.0-6.0); HEMATOCRIT 32.6 % (38.2-49.6); HEMOGLOBIN 11.5 g/dL (14.0-18.0); LYMPHOCYTES # (AUTO) 1.9 (1.0-3.2); LYMPHOCYTES % 17.3 % (18.0-39.1); MEAN CORPUSCULAR HEMOGLOBIN 35.4 pg (28-32); MEAN CORPUSCULAR HGB CONC 35.3 g/dL (31-35); MEAN CORPUSCULAR VOLUME 100.3 fL (81-99); MONOCYTES % 9.1 % (4.4-11.3); NEUTROPHILS # (AUTO) 7.5 (2.1-6.9); NEUTROPHILS % 69.9 % (38.7-80.0); PLATELET COUNT 201 x10e3/uL (140-360); RED BLOOD COUNT 3.25 x10e6/uL (4.3-5.7); RED CELL DISTRIBUTION WIDTH 13.1 % (11.7-14.4)
[2020-04-14 05:07] LABS: ALANINE AMINOTRANSFERASE 18 IU/L (0-55); ALBUMIN 2.2 g/dL (3.5-5.0); ALBUMIN/GLOBULIN RATIO 0.6 (0.8-2.0); ALKALINE PHOSPHATASE 59 IU/L (40-150); ANION GAP 13.1 mmol/L (8-16); BLOOD UREA NITROGEN 7 mg/dL (7-26); BUN/CREATININE RATIO 9 (6-25); CALCIUM 9.4 mg/dL (8.4-10.2); CARBON DIOXIDE 29 mmol/L (22-29); CHLORIDE 91 mmol/L (98-107); CREATININE, SERUM 0.74 mg/dL (0.72-1.25); EST GLOMERULAR FILTRATION RATE > 60 ML/MIN (60-); GLUCOSE 165 mg/dL (74-118); PHOSPHORUS 3.9 MG/DL (2.3-4.7); POTASSIUM 3.1 mmol/L (3.5-5.1); SODIUM 130 mmol/L (136-145)
[2020-04-14] MEDS: SODIUM CHLORIDE 0.9% IV SCH ×2 (05:14→23:51)
[2020-04-14] MEDS: CALCIUM GLUCONATE IV SCH ×2 (05:14→23:51)
[2020-04-14] MEDS: MEROPENEM 500MG/ NS 50ML 50 ML IV SCH ×3 (05:21→22:41)
[2020-04-14] MEDS: METOPROLOL TARTRATE 50 MG TAB PO SCH ×3 (05:21→22:42)
[2020-04-14] MEDS: PHENAZOPYRIDINE HCL 100 MG TAB PO SCH ×3 (05:21→22:42)
[2020-04-14] MEDS: ENOXAPARIN SOD INJ 120 MG/0.8 ML SYR SC SCH ×2 (05:21→18:35)
[2020-04-14] MEDS: FERROUS SULFATE 325 MG TAB PO SCH (09:33)
[2020-04-14] MEDS: CALCIUM CARBONATE 500 MG CHEWABLE TABS PO SCH ×3 (09:33→15:50)
[2020-04-14] MEDS: FLUTICASONE PROPIONATE NASAL SPRAY NS SCH ×2 (09:33→15:50)
[2020-04-14] MEDS: BUMETANIDE INJ 0.25MG/ML 4ML VIAL IV SCH ×3 (09:33→20:36)
[2020-04-14] MEDS: CALCITRIOL 0.25 MCG CAP PO SCH (09:33)
[2020-04-14] MEDS: MULTIVITAMINS- 12 INJECTION 10 ML, FOLIC ACID MDV 5 MG, THIAMINE HCL INJ 100 MG in SODI... IV SCH (09:33)
[2020-04-14] MEDS ORDERED: DEXMEDETOMIDINE 200MCG/NS 50ML 50 ML IV PRN (10:30)
[2020-04-14] MEDS: IRON SUCROSE 100 MG in SODIUM CHLORIDE 0.9% 100 ML 100 ML IV SCH (11:48)
[2020-04-14] MEDS ORDERED: MAGNESIUM SULF 1GRAM/DEXTROSE 100 ML IV ONE (17:15)
[2020-04-14] MEDS: ACETAMINOPHEN 325 MG TAB PO PRN (19:32)
[2020-04-15] VITALS (9 sets, daily range): BP systolic 128–163; BP diastolic 76–99
[2020-04-15] MEDS: LEVALBUTEROL HCL SOLN NEBU 1.25 MG/3 ML NEB INH SCH ×4 (03:10→20:20)
[2020-04-15] MEDS: IPRATROPIUM BROMIDE 0.02% 2.5 ML NEB NEB SCH ×4 (03:10→20:20)
[2020-04-15 03:49] LABS: BASOPHILS # (AUTO) 0.1 (0.0-0.1); BASOPHILS % 0.6 % (0.0-1.0); EOSINOPHILS # (AUTO) 0.1 (0.0-0.4); EOSINOPHILS % 0.8 % (0.0-6.0); HEMATOCRIT 31.7 % (38.2-49.6); LYMPHOCYTES # (AUTO) 1.8 (1.0-3.2); LYMPHOCYTES % 18.5 % (18.0-39.1); MEAN CORPUSCULAR HEMOGLOBIN 34.2 pg (28-32); MEAN CORPUSCULAR HGB CONC 34.7 g/dL (31-35); MEAN CORPUSCULAR VOLUME 98.4 fL (81-99); MONOCYTES # (AUTO) 0.8 (0.2-0.8); MONOCYTES % 8.4 % (4.4-11.3); NEUTROPHILS # (AUTO) 6.6 (2.1-6.9); NEUTROPHILS % 69.1 % (38.7-80.0); PLATELET COUNT 223 x10e3/uL (140-360); RED BLOOD COUNT 3.22 x10e6/uL (4.3-5.7); RED CELL DISTRIBUTION WIDTH 13.2 % (11.7-14.4)
[2020-04-15 04:09] LABS: ALANINE AMINOTRANSFERASE 18 IU/L (0-55); ALBUMIN 2.1 g/dL (3.5-5.0); ALBUMIN/GLOBULIN RATIO 0.8 (0.8-2.0); ALKALINE PHOSPHATASE 46 IU/L (40-150); ANION GAP 13.7 mmol/L (8-16); BLOOD UREA NITROGEN 7 mg/dL (7-26); BUN/CREATININE RATIO 10 (6-25); CALCIUM 8.6 mg/dL (8.4-10.2); CARBON DIOXIDE 33 mmol/L (22-29); CHLORIDE 87 mmol/L (98-107); CREATININE, SERUM 0.69 mg/dL (0.72-1.25); EST GLOMERULAR FILTRATION RATE > 60 ML/MIN (60-); GLUCOSE 153 mg/dL (74-118); PHOSPHORUS 3.7 MG/DL (2.3-4.7); SODIUM 131 mmol/L (136-145)
[2020-04-15 04:15] LABS: POTASSIUM 2.7 mmol/L (3.5-5.1)
[2020-04-15] MEDS ORDERED: POTASSIUM CHLORIDE 20 MEQ TAB CR PO STA (04:31)
[2020-04-15] MEDS ORDERED: MAGNESIUM SULFATE 2GM/50ML 50 ML IV ONE (04:45)
[2020-04-15] MEDS: MULTIVITAMINS- 12 INJECTION 10 ML, FOLIC ACID MDV 5 MG, THIAMINE HCL INJ 100 MG in SODI... IV SCH (05:00)
[2020-04-15] MEDS: ENOXAPARIN SOD INJ 120 MG/0.8 ML SYR SC SCH ×2 (06:33→17:03)
[2020-04-15] MEDS: PHENAZOPYRIDINE HCL 100 MG TAB PO SCH ×3 (06:33→22:17)
[2020-04-15] MEDS: METOPROLOL TARTRATE 50 MG TAB PO SCH ×3 (06:33→22:17)
[2020-04-15] MEDS: MEROPENEM 500MG/ NS 50ML 50 ML IV SCH ×3 (06:33→22:17)
[2020-04-15] MEDS: FLUTICASONE PROPIONATE NASAL SPRAY NS SCH ×2 (09:04→16:51)
[2020-04-15] MEDS: CALCIUM CARBONATE 500 MG CHEWABLE TABS PO SCH ×3 (09:04→17:02)
[2020-04-15] MEDS: POTASSIUM CHLORIDE 20 MEQ TAB CR PO SCH (09:04)
[2020-04-15] MEDS: BUMETANIDE INJ 0.25MG/ML 4ML VIAL IV SCH ×2 (09:04→16:51)
[2020-04-15] MEDS: CALCITRIOL 0.25 MCG CAP PO SCH (09:04)
[2020-04-15] MEDS: IRON SUCROSE 100 MG in SODIUM CHLORIDE 0.9% 100 ML 100 ML IV SCH (12:00)
[2020-04-15] MEDS ORDERED: POTASSIUM CHLORIDE 20MEQ/100ML 200 ML IV ONE (16:30)
[2020-04-15] MEDS: ACETAMINOPHEN 325 MG TAB PO PRN (20:13)
[2020-04-15] MEDS: TRAMADOL HCL 50 MG TAB PO PRN (20:27)
[2020-04-16] MEDS: IPRATROPIUM BROMIDE 0.02% 2.5 ML NEB NEB SCH ×4 (01:05→19:25)
[2020-04-16] MEDS: LEVALBUTEROL HCL SOLN NEBU 1.25 MG/3 ML NEB INH SCH ×4 (01:05→19:25)
[2020-04-16 05:12] VITALS: BP 170/86
[2020-04-16] MEDS: SODIUM CHLORIDE 0.9% IV SCH (05:14)
[2020-04-16] MEDS: CALCIUM GLUCONATE IV SCH (05:14)
[2020-04-16 05:16] LABS: BASOPHILS # (AUTO) 0.1 (0.0-0.1); BASOPHILS % 0.7 % (0.0-1.0); EOSINOPHILS # (AUTO) 0.2 (0.0-0.4); HEMATOCRIT 31.1 % (38.2-49.6); HEMOGLOBIN 10.6 g/dL (14.0-18.0); LYMPHOCYTES # (AUTO) 1.6 (1.0-3.2); MEAN CORPUSCULAR HEMOGLOBIN 33.8 pg (28-32); MEAN CORPUSCULAR HGB CONC 34.1 g/dL (31-35); MONOCYTES # (AUTO) 0.7 (0.2-0.8); MONOCYTES % 7.3 % (4.4-11.3); NEUTROPHILS # (AUTO) 6.2 (2.1-6.9); NEUTROPHILS % 68.1 % (38.7-80.0); PLATELET COUNT 246 x10e3/uL (140-360); RED BLOOD COUNT 3.14 x10e6/uL (4.3-5.7); RED CELL DISTRIBUTION WIDTH 13.3 % (11.7-14.4)
[2020-04-16] MEDS: ACETAMINOPHEN 1000 MG/100 ML IV SCH ×5 (05:46→18:00)
[2020-04-16] MEDS ORDERED: ACETAMINOPHEN 1000 MG/100 ML 100 ML IV ONE (05:51)
[2020-04-16 06:14] LABS: ALANINE AMINOTRANSFERASE 14 IU/L (0-55); ALBUMIN/GLOBULIN RATIO 0.7 (0.8-2.0); ALKALINE PHOSPHATASE 45 IU/L (40-150); ANION GAP 13.7 mmol/L (8-16); BLOOD UREA NITROGEN 7 mg/dL (7-26); BUN/CREATININE RATIO 10 (6-25); CARBON DIOXIDE 30 mmol/L (22-29); CHLORIDE 93 mmol/L (98-107); EST GLOMERULAR FILTRATION RATE > 60 ML/MIN (60-); GLUCOSE 139 mg/dL (74-118); MAGNESIUM 1.2 MG/DL (1.3-2.1); SODIUM 134 mmol/L (136-145)
[2020-04-16 06:33] LABS: POTASSIUM 2.7 mmol/L (3.5-5.1)
[2020-04-16] MEDS: ENOXAPARIN SOD INJ 120 MG/0.8 ML SYR SC SCH ×2 (06:43→18:21)
[2020-04-16] MEDS: PHENAZOPYRIDINE HCL 100 MG TAB PO SCH ×3 (06:43→22:11)
[2020-04-16] MEDS: METOPROLOL TARTRATE 50 MG TAB PO SCH ×3 (06:43→22:08)
[2020-04-16] MEDS: MEROPENEM 500MG/ NS 50ML 50 ML IV SCH ×3 (06:43→22:11)
[2020-04-16] MEDS: MULTIVITAMINS- 12 INJECTION 10 ML, FOLIC ACID MDV 5 MG, THIAMINE HCL INJ 100 MG in SODI... IV SCH (06:43)
[2020-04-16] MEDS: CALCIUM CARBONATE 500 MG CHEWABLE TABS PO SCH ×3 (08:00→18:21)
[2020-04-16] MEDS: BUMETANIDE INJ 0.25MG/ML 4ML VIAL IV SCH (08:20)
[2020-04-16] MEDS: CALCITRIOL 0.25 MCG CAP PO SCH (08:21)
[2020-04-16] MEDS ORDERED: POTASSIUM CHLORIDE 20 MEQ TAB CR PO ONE (08:30)
[2020-04-16 09:00] VITALS: BP 149/91
[2020-04-16] MEDS: FLUTICASONE PROPIONATE NASAL SPRAY NS SCH ×2 (09:00→18:00)
[2020-04-16 10:15] VITALS: BP 149/91
[2020-04-16] MEDS: POTASSIUM CHLORIDE 20 MEQ TAB CR PO SCH (10:15)
[2020-04-16 12:00] VITALS: BP 149/98
[2020-04-16] MEDS: IRON SUCROSE 100 MG in SODIUM CHLORIDE 0.9% 100 ML 100 ML IV SCH (12:19)
[2020-04-16] MEDS ORDERED: MAGNESIUM SULFATE 2GM/50ML 50 ML IV ONE (14:45)
[2020-04-16 16:35] LABS: ALANINE AMINOTRANSFERASE 16 IU/L (0-55); ALBUMIN 2.4 g/dL (3.5-5.0); ALBUMIN/GLOBULIN RATIO 0.6 (0.8-2.0); ALKALINE PHOSPHATASE 54 IU/L (40-150); ANION GAP 14.4 mmol/L (8-16); BLOOD UREA NITROGEN 9 mg/dL (7-26); BUN/CREATININE RATIO 11 (6-25); CALCIUM 8.5 mg/dL (8.4-10.2); CARBON DIOXIDE 32 mmol/L (22-29); CHLORIDE 88 mmol/L (98-107); CREATININE, SERUM 0.84 mg/dL (0.72-1.25); EST GLOMERULAR FILTRATION RATE > 60 ML/MIN (60-); GLUCOSE 194 mg/dL (74-118); POTASSIUM 3.4 mmol/L (3.5-5.1); SODIUM 131 mmol/L (136-145)
[2020-04-16] MEDS ORDERED: POTASSIUM CHLORIDE 20MEQ/100ML 200 ML IV ONE (17:45)
[2020-04-16 20:00] VITALS: BP 147/90
[2020-04-16 21:11] VITALS: BP 147/90
[2020-04-16] MEDS: FOLIC ACID MDV 5 MG, THIAMINE HCL INJ 100 MG in SODIUM CHLORIDE 0.9% 1000ML 1,000 ML IV SCH (22:40)
[2020-04-17] VITALS (8 sets, daily range): BP systolic 139–161; BP diastolic 89–97
[2020-04-17] MEDS: ACETAMINOPHEN 1000 MG/100 ML IV SCH (00:29)
[2020-04-17] MEDS: IPRATROPIUM BROMIDE 0.02% 2.5 ML NEB NEB SCH ×4 (01:50→19:15)
[2020-04-17] MEDS: LEVALBUTEROL HCL SOLN NEBU 1.25 MG/3 ML NEB INH SCH ×4 (01:50→19:15)
[2020-04-17 05:46] LABS: BASOPHILS # (AUTO) 0.1 (0.0-0.1); BASOPHILS % 0.6 % (0.0-1.0); EOSINOPHILS # (AUTO) 0.2 (0.0-0.4); EOSINOPHILS % 2.1 % (0.0-6.0); HEMATOCRIT 32.7 % (38.2-49.6); HEMOGLOBIN 11.1 g/dL (14.0-18.0); LYMPHOCYTES # (AUTO) 1.6 (1.0-3.2); LYMPHOCYTES % 14.4 % (18.0-39.1); MEAN CORPUSCULAR HGB CONC 33.9 g/dL (31-35); MEAN CORPUSCULAR VOLUME 100.3 fL (81-99); MONOCYTES % 8.7 % (4.4-11.3); NEUTROPHILS # (AUTO) 7.7 (2.1-6.9); NEUTROPHILS % 70.1 % (38.7-80.0); PLATELET COUNT 246 x10e3/uL (140-360); RED BLOOD COUNT 3.26 x10e6/uL (4.3-5.7); RED CELL DISTRIBUTION WIDTH 13.3 % (11.7-14.4)
[2020-04-17] MEDS: MEROPENEM 500MG/ NS 50ML 50 ML IV SCH ×3 (06:06→22:03)
[2020-04-17] MEDS: PHENAZOPYRIDINE HCL 100 MG TAB PO SCH ×3 (06:07→22:03)
[2020-04-17] MEDS: METOPROLOL TARTRATE 50 MG TAB PO SCH ×3 (06:07→22:09)
[2020-04-17 06:16] LABS: ALANINE AMINOTRANSFERASE 15 IU/L (0-55); ALBUMIN 2.2 g/dL (3.5-5.0); ALBUMIN/GLOBULIN RATIO 0.7 (0.8-2.0); ALKALINE PHOSPHATASE 48 IU/L (40-150); ANION GAP 14.5 mmol/L (8-16); BLOOD UREA NITROGEN 9 mg/dL (7-26); BUN/CREATININE RATIO 13 (6-25); CALCIUM 8.1 mg/dL (8.4-10.2); CARBON DIOXIDE 31 mmol/L (22-29); CHLORIDE 92 mmol/L (98-107); CREATININE, SERUM 0.71 mg/dL (0.72-1.25); EST GLOMERULAR FILTRATION RATE > 60 ML/MIN (60-); GLUCOSE 137 mg/dL (74-118); MAGNESIUM 1.5 MG/DL (1.3-2.1); POTASSIUM 3.5 mmol/L (3.5-5.1); SODIUM 134 mmol/L (136-145)
[2020-04-17] MEDS: CALCIUM CARBONATE 500 MG CHEWABLE TABS PO SCH ×3 (09:31→17:24)
[2020-04-17] MEDS: FLUTICASONE PROPIONATE NASAL SPRAY NS SCH ×2 (09:32→17:24)
[2020-04-17] MEDS: POTASSIUM CHLORIDE 20 MEQ TAB CR PO SCH (09:32)
[2020-04-17] MEDS: CALCITRIOL 0.25 MCG CAP PO SCH (09:33)
[2020-04-17] MEDS ORDERED: LORAZEPAM 0.5 MG TAB PO PRN (10:30)
[2020-04-17] MEDS: THIAMINE HCL 100 MG TAB PO SCH (11:44)
[2020-04-17] MEDS: IRON SUCROSE 100 MG in SODIUM CHLORIDE 0.9% 100 ML 100 ML IV SCH (13:04)
[2020-04-17] MEDS: CHLORDIAZEPOXIDE HCL 10 MG CAP PO PRN ×2 (14:30→22:27)
[2020-04-17] MEDS: RIVAROXABAN 20 MG TABLET PO SCH (17:24)
[2020-04-17] MEDS: FOLIC ACID MDV 5 MG, THIAMINE HCL INJ 100 MG in SODIUM CHLORIDE 0.9% 1000ML 1,000 ML IV SCH (17:33)
[2020-04-18] VITALS (8 sets, daily range): BP systolic 145–166; BP diastolic 94–99
[2020-04-18] MEDS: LEVALBUTEROL HCL SOLN NEBU 1.25 MG/3 ML NEB INH SCH ×4 (01:45→19:55)
[2020-04-18] MEDS: IPRATROPIUM BROMIDE 0.02% 2.5 ML NEB NEB SCH ×4 (01:45→19:55)
[2020-04-18 05:41] LABS: BASOPHILS # (AUTO) 0.1 (0.0-0.1); BASOPHILS % 0.4 % (0.0-1.0); EOSINOPHILS # (AUTO) 0.3 (0.0-0.4); EOSINOPHILS % 2.1 % (0.0-6.0); HEMATOCRIT 31.1 % (38.2-49.6); HEMOGLOBIN 10.8 g/dL (14.0-18.0); LYMPHOCYTES # (AUTO) 1.8 (1.0-3.2); LYMPHOCYTES % 14.4 % (18.0-39.1); MEAN CORPUSCULAR HEMOGLOBIN 34.8 pg (28-32); MEAN CORPUSCULAR HGB CONC 34.7 g/dL (31-35); MEAN CORPUSCULAR VOLUME 100.3 fL (81-99); MONOCYTES # (AUTO) 0.8 (0.2-0.8); MONOCYTES % 6.6 % (4.4-11.3); NEUTROPHILS # (AUTO) 8.8 (2.1-6.9); NEUTROPHILS % 72.1 % (38.7-80.0); PLATELET COUNT 254 x10e3/uL (140-360); RED CELL DISTRIBUTION WIDTH 13.2 % (11.7-14.4)
[2020-04-18 06:21] LABS: ALANINE AMINOTRANSFERASE 18 IU/L (0-55); ALBUMIN 2.1 g/dL (3.5-5.0); ALBUMIN/GLOBULIN RATIO 0.6 (0.8-2.0); ALKALINE PHOSPHATASE 48 IU/L (40-150); ANION GAP 12.8 mmol/L (8-16); BLOOD UREA NITROGEN 8 mg/dL (7-26); BUN/CREATININE RATIO 12 (6-25); CALCIUM 8.2 mg/dL (8.4-10.2); CARBON DIOXIDE 29 mmol/L (22-29); CHLORIDE 93 mmol/L (98-107); CREATININE, SERUM 0.66 mg/dL (0.72-1.25); EST GLOMERULAR FILTRATION RATE > 60 ML/MIN (60-); GLUCOSE 119 mg/dL (74-118); POTASSIUM 3.8 mmol/L (3.5-5.1); SODIUM 131 mmol/L (136-145)
[2020-04-18] MEDS: MEROPENEM 500MG/ NS 50ML 50 ML IV SCH ×3 (06:50→22:15)
[2020-04-18] MEDS: METOPROLOL TARTRATE 50 MG TAB PO SCH ×3 (06:51→22:15)
[2020-04-18] MEDS: PHENAZOPYRIDINE HCL 100 MG TAB PO SCH ×3 (06:51→22:16)
[2020-04-18] MEDS: CALCIUM CARBONATE 500 MG CHEWABLE TABS PO SCH ×3 (10:00→17:37)
[2020-04-18] MEDS: FLUTICASONE PROPIONATE NASAL SPRAY NS SCH ×2 (10:00→17:37)
[2020-04-18] MEDS: POTASSIUM CHLORIDE 20 MEQ TAB CR PO SCH (10:00)
[2020-04-18] MEDS: CALCITRIOL 0.25 MCG CAP PO SCH (10:01)
[2020-04-18] MEDS: THIAMINE HCL 100 MG TAB PO SCH (10:01)
[2020-04-18] MEDS: CHLORDIAZEPOXIDE HCL 10 MG CAP PO PRN ×2 (10:51→22:30)
[2020-04-18] MEDS ORDERED: ACETAMINOPHEN 325 MG TAB PO PRN (13:00)
[2020-04-18] MEDS: IRON SUCROSE 100 MG in SODIUM CHLORIDE 0.9% 100 ML 100 ML IV SCH (13:03)
[2020-04-18] MEDS: FOLIC ACID MDV 5 MG, THIAMINE HCL INJ 100 MG in SODIUM CHLORIDE 0.9% 1000ML 1,000 ML IV SCH (17:24)
[2020-04-18] MEDS: RIVAROXABAN 20 MG TABLET PO SCH (17:37)
[2020-04-19] VITALS (14 sets, daily range): BP systolic 155–167; BP diastolic 83–100
[2020-04-19] MEDS: LEVALBUTEROL HCL SOLN NEBU 1.25 MG/3 ML NEB INH SCH ×4 (01:10→19:00)
[2020-04-19] MEDS: IPRATROPIUM BROMIDE 0.02% 2.5 ML NEB NEB SCH ×4 (01:10→19:00)
[2020-04-19 06:16] LABS: BASOPHILS # (AUTO) 0.1 (0.0-0.1); BASOPHILS % 0.5 % (0.0-1.0); EOSINOPHILS # (AUTO) 0.3 (0.0-0.4); EOSINOPHILS % 1.9 % (0.0-6.0); HEMATOCRIT 30.9 % (38.2-49.6); HEMOGLOBIN 10.6 g/dL (14.0-18.0); LYMPHOCYTES # (AUTO) 1.7 (1.0-3.2); LYMPHOCYTES % 12.8 % (18.0-39.1); MEAN CORPUSCULAR HEMOGLOBIN 33.5 pg (28-32); MEAN CORPUSCULAR HGB CONC 34.3 g/dL (31-35); MEAN CORPUSCULAR VOLUME 97.8 fL (81-99); MONOCYTES # (AUTO) 0.8 (0.2-0.8); NEUTROPHILS % 75.8 % (38.7-80.0); PLATELET COUNT 307 x10e3/uL (140-360); RED BLOOD COUNT 3.16 x10e6/uL (4.3-5.7); RED CELL DISTRIBUTION WIDTH 13.2 % (11.7-14.4)
[2020-04-19 06:40] LABS: ALANINE AMINOTRANSFERASE 14 IU/L (0-55); ALBUMIN 2.2 g/dL (3.5-5.0); ALBUMIN/GLOBULIN RATIO 0.7 (0.8-2.0); ALKALINE PHOSPHATASE 48 IU/L (40-150); ANION GAP 13.1 mmol/L (8-16); BLOOD UREA NITROGEN 7 mg/dL (7-26); BUN/CREATININE RATIO 17 (6-25); CALCIUM 8.5 mg/dL (8.4-10.2); CARBON DIOXIDE 26 mmol/L (22-29); CHLORIDE 93 mmol/L (98-107); CREATININE, SERUM 0.41 mg/dL (0.72-1.25); EST GLOMERULAR FILTRATION RATE > 60 ML/MIN (60-); GLUCOSE 110 mg/dL (74-118); POTASSIUM 4.1 mmol/L (3.5-5.1); SODIUM 128 mmol/L (136-145)
[2020-04-19] MEDS: PHENAZOPYRIDINE HCL 100 MG TAB PO SCH ×3 (07:06→21:28)
[2020-04-19] MEDS: METOPROLOL TARTRATE 50 MG TAB PO SCH ×2 (07:06→15:06)
[2020-04-19] MEDS: MEROPENEM 500MG/ NS 50ML 50 ML IV SCH ×3 (07:06→21:28)
[2020-04-19] MEDS: CALCIUM CARBONATE 500 MG CHEWABLE TABS PO SCH ×3 (09:08→16:42)
[2020-04-19] MEDS: FLUTICASONE PROPIONATE NASAL SPRAY NS SCH ×2 (09:08→16:42)
[2020-04-19] MEDS: CALCITRIOL 0.25 MCG CAP PO SCH (09:09)
[2020-04-19] MEDS: POTASSIUM CHLORIDE 20 MEQ TAB CR PO SCH (09:09)
[2020-04-19] MEDS: THIAMINE HCL 100 MG TAB PO SCH (09:09)
[2020-04-19] MEDS: FOLIC ACID MDV 5 MG, THIAMINE HCL INJ 100 MG in SODIUM CHLORIDE 0.9% 1000ML 1,000 ML IV SCH ×2 (09:39→10:07)
[2020-04-19] MEDS: IRON SUCROSE 100 MG in SODIUM CHLORIDE 0.9% 100 ML 100 ML IV SCH (12:13)
[2020-04-19] MEDS: SODIUM CHLORIDE 1 GM TAB PO SCH ×2 (15:06→21:28)
[2020-04-19] MEDS: RIVAROXABAN 20 MG TABLET PO SCH (16:42)
[2020-04-19] MEDS ORDERED: CHLORDIAZEPOXIDE HCL 10 MG CAP PO PRN (18:00)
[2020-04-19] MEDS ORDERED: LORAZEPAM 0.5 MG TAB PO PRN (21:00)
[2020-04-19] MEDS ORDERED: LORAZEPAM 0.5 MG TAB PO SCH (21:00)
[2020-04-19] MEDS: QUETIAPINE FUMARATE 25 MG TAB PO PRN (21:29)
[2020-04-19] MEDS: CHLORDIAZEPOXIDE HCL 10 MG CAP PO SCH (23:46)
[2020-04-20] VITALS (17 sets, daily range): BP systolic 141–191; BP diastolic 88–111
[2020-04-20] MEDS: IPRATROPIUM BROMIDE 0.02% 2.5 ML NEB NEB SCH ×4 (01:00→20:18)
[2020-04-20 02:49] LABS: CLARITY,URINE CLOUDY (CLEAR); COLOR,URINE YELLOW (YELLOW); KETONES,URINE 3+ (NEGATIVE); LEUKOCYTE ESTERASE ,URINE NEGATIVE (NEGATIVE); NITRITE,URINE POSITIVE (NEGATIVE); PROTEIN,URINE DIPSTICK 1+ (NEGATIVE)
[2020-04-20 02:50] LABS: URINE UROBILINOGEN 1 mg/dL (0.2 - 1)
[2020-04-20 02:56] LABS: BACTERIA,URINE FEW /HPF; EPITHELIAL CELLS,URINE FEW /LPF; WBC,URINE (MAN) 0-5 /HPF (0-5)
[2020-04-20] MEDS: LABETALOL HCL 5 MG/ML 20ML VIAL IV PRN ×2 (03:18→09:49)
[2020-04-20 03:41] LABS: BASOPHILS # (AUTO) 0.1 (0.0-0.1); BASOPHILS % 0.4 % (0.0-1.0); EOSINOPHILS # (AUTO) 0.2 (0.0-0.4); EOSINOPHILS % 1.3 % (0.0-6.0); HEMATOCRIT 32.1 % (38.2-49.6); LYMPHOCYTES # (AUTO) 1.7 (1.0-3.2); LYMPHOCYTES % 12.8 % (18.0-39.1); MEAN CORPUSCULAR HEMOGLOBIN 33.4 pg (28-32); MEAN CORPUSCULAR HGB CONC 34.3 g/dL (31-35); MEAN CORPUSCULAR VOLUME 97.6 fL (81-99); MONOCYTES % 7.3 % (4.4-11.3); NEUTROPHILS # (AUTO) 10.2 (2.1-6.9); NEUTROPHILS % 75.5 % (38.7-80.0); PLATELET COUNT 342 x10e3/uL (140-360); RED BLOOD COUNT 3.29 x10e6/uL (4.3-5.7); RED CELL DISTRIBUTION WIDTH 13.2 % (11.7-14.4)
[2020-04-20 03:43] LABS: CALCIUM IONIZED 1.2 mmol/L (1.09-1.30)
[2020-04-20] MEDS: HYDRALAZINE HCL 20 MG/ML VIAL IV PRN (03:45)
[2020-04-20] MEDS: CYANOCOBALAMIN INJ 1,000 MCG/ML VIAL IM SCH (03:55)
[2020-04-20 04:00] LABS: ALANINE AMINOTRANSFERASE 16 IU/L (0-55); ALBUMIN 2.3 g/dL (3.5-5.0); ALBUMIN/GLOBULIN RATIO 0.6 (0.8-2.0); ALKALINE PHOSPHATASE 52 IU/L (40-150); ANION GAP 12.9 mmol/L (8-16); BLOOD UREA NITROGEN 7 mg/dL (7-26); BUN/CREATININE RATIO 11 (6-25); CALCIUM 8.7 mg/dL (8.4-10.2); CARBON DIOXIDE 25 mmol/L (22-29); CHLORIDE 92 mmol/L (98-107); CREATININE, SERUM 0.64 mg/dL (0.72-1.25); EST GLOMERULAR FILTRATION RATE > 60 ML/MIN (60-); GLUCOSE 112 mg/dL (74-118); PHOSPHORUS 3.7 MG/DL (2.3-4.7); POTASSIUM 3.9 mmol/L (3.5-5.1); SODIUM 126 mmol/L (136-145)
[2020-04-20] MEDS: FOLIC ACID MDV 5 MG, THIAMINE HCL INJ 100 MG in SODIUM CHLORIDE 0.9% 1000ML 1,000 ML IV SCH (05:15)
[2020-04-20] MEDS: MEROPENEM 500MG/ NS 50ML 50 ML IV SCH ×3 (05:16→21:44)
[2020-04-20] MEDS: CHLORDIAZEPOXIDE HCL 10 MG CAP PO SCH ×4 (05:16→17:27)
[2020-04-20] MEDS: QUETIAPINE FUMARATE 25 MG TAB PO PRN (05:18)
[2020-04-20] MEDS ORDERED: SODIUM CHLORIDE 0.9% 1000ML 1,000 ML ONE (05:39)
[2020-04-20] MEDS: LEVALBUTEROL HCL SOLN NEBU 1.25 MG/3 ML NEB INH SCH ×3 (07:00→20:18)
[2020-04-20] MEDS: THIAMINE HCL INJ 100 MG/ML 2ML VIAL IV SCH (09:41)
[2020-04-20] MEDS: CALCIUM CARBONATE 500 MG CHEWABLE TABS PO SCH ×2 (09:41→13:34)
[2020-04-20] MEDS: POTASSIUM CHLORIDE 20 MEQ TAB CR PO SCH (09:41)
[2020-04-20] MEDS: FLUTICASONE PROPIONATE NASAL SPRAY NS SCH ×2 (09:41→17:02)
[2020-04-20] MEDS: CALCITRIOL 0.25 MCG CAP PO SCH (09:41)
[2020-04-20] MEDS: SODIUM CHLORIDE 1 GM TAB PO SCH ×3 (09:41→20:49)
[2020-04-20] MEDS ORDERED: METOPROLOL TARTRATE 25 MG TAB PO SCH (11:15)
[2020-04-20] MEDS ORDERED: ONDANSETRON HCL 4 MG ORAL DISINTEGRATING TAB PO PRN (13:30)
[2020-04-20] MEDS: IRON SUCROSE 100 MG in SODIUM CHLORIDE 0.9% 100 ML 100 ML IV SCH (13:34)
[2020-04-20] MEDS: METOPROLOL TARTRATE 25 MG TAB PO SCH ×2 (13:54→21:45)
[2020-04-20 14:41] LABS: ABG HCO3 21 mmol/L (22-26); ABG PCO2 30 mmHg (35-45); ABG PH 7.46 (7.35-7.45); ABG PO2 84 mmHg (80-105); ABG TCO2 22
[2020-04-20] MEDS: RIVAROXABAN 20 MG TABLET PO SCH (17:00)
[2020-04-20] MEDS: SODIUM CHLORIDE 0.9% 1000ML 1,000 ML IV SCH (17:25)
[2020-04-20] MEDS: BUMETANIDE INJ 0.25MG/ML 4ML VIAL IV SCH (17:25)
[2020-04-20] MEDS ORDERED: CHLORDIAZEPOXIDE HCL 10 MG CAP PO SCH (22:00)
[2020-04-21] VITALS (8 sets, daily range): BP systolic 142–165; BP diastolic 90–106
[2020-04-21] MEDS: IPRATROPIUM BROMIDE 0.02% 2.5 ML NEB NEB SCH ×4 (01:15→20:35)
[2020-04-21] MEDS: LEVALBUTEROL HCL SOLN NEBU 1.25 MG/3 ML NEB INH SCH ×4 (01:15→20:35)
[2020-04-21] MEDS: FOLIC ACID MDV 5 MG, THIAMINE HCL INJ 100 MG in SODIUM CHLORIDE 0.9% 1000ML 1,000 ML IV SCH ×2 (01:45→21:09)
[2020-04-21] MEDS: BUMETANIDE INJ 0.25MG/ML 4ML VIAL IV SCH ×3 (02:05→18:16)
[2020-04-21 04:44] LABS: BASOPHILS # (AUTO) 0.1 (0.0-0.1); BASOPHILS % 0.6 % (0.0-1.0); EOSINOPHILS # (AUTO) 0.1 (0.0-0.4); HEMOGLOBIN 11.4 g/dL (14.0-18.0); LYMPHOCYTES # (AUTO) 1.6 (1.0-3.2); LYMPHOCYTES % 12.5 % (18.0-39.1); MEAN CORPUSCULAR HEMOGLOBIN 33.6 pg (28-32); MEAN CORPUSCULAR HGB CONC 34.5 g/dL (31-35); MEAN CORPUSCULAR VOLUME 97.3 fL (81-99); MONOCYTES # (AUTO) 0.9 (0.2-0.8); NEUTROPHILS # (AUTO) 9.7 (2.1-6.9); NEUTROPHILS % 76.5 % (38.7-80.0); PLATELET COUNT 411 x10e3/uL (140-360); RED BLOOD COUNT 3.39 x10e6/uL (4.3-5.7); RED CELL DISTRIBUTION WIDTH 13.4 % (11.7-14.4)
[2020-04-21 05:05] LABS: ALANINE AMINOTRANSFERASE 22 IU/L (0-55); ALBUMIN 2.5 g/dL (3.5-5.0); ALBUMIN/GLOBULIN RATIO 0.6 (0.8-2.0); ALKALINE PHOSPHATASE 67 IU/L (40-150); ANION GAP 18.4 mmol/L (8-16); BLOOD UREA NITROGEN 7 mg/dL (7-26); BUN/CREATININE RATIO 10 (6-25); CARBON DIOXIDE 24 mmol/L (22-29); CHLORIDE 93 mmol/L (98-107); EST GLOMERULAR FILTRATION RATE > 60 ML/MIN (60-); GLUCOSE 132 mg/dL (74-118); POTASSIUM 4.4 mmol/L (3.5-5.1); SODIUM 131 mmol/L (136-145)
[2020-04-21] MEDS: SODIUM CHLORIDE 0.9% 1000ML 1,000 ML IV SCH ×2 (05:59→20:24)
[2020-04-21] MEDS: METOPROLOL TARTRATE 25 MG TAB PO SCH ×2 (06:00→15:28)
[2020-04-21] MEDS: CHLORDIAZEPOXIDE HCL 10 MG CAP PO SCH ×4 (06:00→15:28)
[2020-04-21] MEDS: MEROPENEM 500MG/ NS 50ML 50 ML IV SCH ×3 (06:10→22:18)
[2020-04-21] MEDS: CALCIUM CARBONATE 500 MG CHEWABLE TABS PO SCH ×3 (07:57→18:16)
[2020-04-21] MEDS: THIAMINE HCL INJ 100 MG/ML 2ML VIAL IV SCH (07:57)
[2020-04-21] MEDS: CALCITRIOL 0.25 MCG CAP PO SCH (07:58)
[2020-04-21] MEDS: FLUTICASONE PROPIONATE NASAL SPRAY NS SCH ×2 (07:58→18:16)
[2020-04-21] MEDS: POTASSIUM CHLORIDE 20 MEQ TAB CR PO SCH (07:58)
[2020-04-21] MEDS: SODIUM CHLORIDE 1 GM TAB PO SCH ×3 (07:59→20:24)
[2020-04-21] MEDS: IRON SUCROSE 100 MG in SODIUM CHLORIDE 0.9% 100 ML 100 ML IV SCH (12:24)
[2020-04-21] MEDS: RIVAROXABAN 20 MG TABLET PO SCH (17:00)
[2020-04-21] MEDS: METOPROLOL TARTRATE INJ 1 MG/ML VIAL IV SCH (20:23)
[2020-04-22] VITALS (13 sets, daily range): BP systolic 103–153; BP diastolic 88–101
[2020-04-22] MEDS: METOPROLOL TARTRATE INJ 1 MG/ML VIAL IV SCH ×4 (00:16→19:34)
[2020-04-22] MEDS: CHLORDIAZEPOXIDE HCL 10 MG CAP PO SCH ×5 (00:16→20:14)
[2020-04-22] MEDS: IPRATROPIUM BROMIDE 0.02% 2.5 ML NEB NEB SCH ×4 (02:10→19:15)
[2020-04-22] MEDS: LEVALBUTEROL HCL SOLN NEBU 1.25 MG/3 ML NEB INH SCH ×4 (02:10→21:45)
[2020-04-22] MEDS: BUMETANIDE INJ 0.25MG/ML 4ML VIAL IV SCH ×3 (02:11→18:39)
[2020-04-22] MEDS: MEROPENEM 500MG/ NS 50ML 50 ML IV SCH ×2 (05:32→15:36)
[2020-04-22 05:44] LABS: BASOPHILS # (AUTO) 0.1 (0.0-0.1); BASOPHILS % 0.8 % (0.0-1.0); EOSINOPHILS # (AUTO) 0.2 (0.0-0.4); EOSINOPHILS % 1.7 % (0.0-6.0); HEMATOCRIT 33.4 % (38.2-49.6); HEMOGLOBIN 11.5 g/dL (14.0-18.0); LYMPHOCYTES # (AUTO) 1.6 (1.0-3.2); LYMPHOCYTES % 16.8 % (18.0-39.1); MEAN CORPUSCULAR HEMOGLOBIN 33.9 pg (28-32); MEAN CORPUSCULAR HGB CONC 34.4 g/dL (31-35); MEAN CORPUSCULAR VOLUME 98.5 fL (81-99); MONOCYTES # (AUTO) 0.9 (0.2-0.8); MONOCYTES % 9.2 % (4.4-11.3); NEUTROPHILS # (AUTO) 6.6 (2.1-6.9); NEUTROPHILS % 67.7 % (38.7-80.0); PLATELET COUNT 383 x10e3/uL (140-360); RED BLOOD COUNT 3.39 x10e6/uL (4.3-5.7); RED CELL DISTRIBUTION WIDTH 13.3 % (11.7-14.4)
[2020-04-22 05:50] LABS: INR 1.11; PROTHROMBIN TIME 14.9 seconds (11.9-14.5)
[2020-04-22 05:57] LABS: ALANINE AMINOTRANSFERASE 19 IU/L (0-55); ALBUMIN 2.6 g/dL (3.5-5.0); ALBUMIN/GLOBULIN RATIO 0.7 (0.8-2.0); ALKALINE PHOSPHATASE 52 IU/L (40-150); ANION GAP 17.8 mmol/L (8-16); BLOOD UREA NITROGEN 7 mg/dL (7-26); BUN/CREATININE RATIO 10 (6-25); CALCIUM 9.4 mg/dL (8.4-10.2); CARBON DIOXIDE 25 mmol/L (22-29); CHLORIDE 96 mmol/L (98-107); CREATININE, SERUM 0.71 mg/dL (0.72-1.25); EST GLOMERULAR FILTRATION RATE > 60 ML/MIN (60-); GLUCOSE 122 mg/dL (74-118); MAGNESIUM 1.4 MG/DL (1.3-2.1); POTASSIUM 3.8 mmol/L (3.5-5.1); SODIUM 135 mmol/L (136-145)
[2020-04-22] MEDS: CALCIUM CARBONATE 500 MG CHEWABLE TABS PO SCH ×3 (09:26→18:39)
[2020-04-22] MEDS: CALCITRIOL 0.25 MCG CAP PO SCH (09:26)
[2020-04-22] MEDS: THIAMINE HCL INJ 100 MG/ML 2ML VIAL IV SCH (09:27)
[2020-04-22] MEDS: POTASSIUM CHLORIDE 20 MEQ TAB CR PO SCH (09:27)
[2020-04-22] MEDS: FLUTICASONE PROPIONATE NASAL SPRAY NS SCH ×2 (09:27→18:39)
[2020-04-22] MEDS: SODIUM CHLORIDE 1 GM TAB PO SCH ×3 (09:27→21:21)
[2020-04-22] MEDS: SODIUM CHLORIDE 0.9% 1000ML 1,000 ML IV SCH (13:14)
[2020-04-22 13:56] LABS: COLOR,CSF COLORLESS (COLORLESS)
[2020-04-22 13:57] LABS: TUBE NUMBER 3; WHITE BLOOD CELL,CSF 968 cells/uL (0-5)
[2020-04-22 14:01] LABS: APPEARANCE,CSF HAZY (CLEAR)
[2020-04-22 14:16] LABS: TOTAL PROTEIN,CSF 234.7 mg/dL (15-40)
[2020-04-22 14:17] LABS: EOSINOPHILS,CSF 1 % (0-0); MONOCYTES,CSF 4 %
[2020-04-22 14:18] LABS: LYMPHOCYTES,CSF 94 % (40-80); NEUTROPHILS,CSF 1 % (0-6)
[2020-04-22] MEDS: IRON SUCROSE 100 MG in SODIUM CHLORIDE 0.9% 100 ML 100 ML IV SCH (14:50)
[2020-04-22] MEDS: FOLIC ACID MDV 5 MG, THIAMINE HCL INJ 100 MG in SODIUM CHLORIDE 0.9% 1000ML 1,000 ML IV SCH (19:25)
[2020-04-22] MEDS: RIVAROXABAN 20 MG TABLET PO SCH (19:34)
[2020-04-22] MEDS ORDERED: ACYCLOVIR SODIUM 800 MG in SODIUM CHLORIDE 0.9% 250ML 250 ML IV SCH (23:45)
[2020-04-23] VITALS (8 sets, daily range): BP systolic 117–160; BP diastolic 89–107
[2020-04-23] MEDS: METOPROLOL TARTRATE INJ 1 MG/ML VIAL IV SCH ×4 (00:21→19:11)
[2020-04-23] MEDS: SODIUM CHLORIDE 0.9% 1000ML 1,000 ML IV SCH ×2 (00:22→14:15)
[2020-04-23] MEDS: CHLORDIAZEPOXIDE HCL 10 MG CAP PO SCH ×2 (00:47→05:54)
[2020-04-23] MEDS: LEVALBUTEROL HCL SOLN NEBU 1.25 MG/3 ML NEB INH SCH ×4 (01:10→19:15)
[2020-04-23] MEDS: BUMETANIDE INJ 0.25MG/ML 4ML VIAL IV SCH ×3 (02:11→19:11)
[2020-04-23] MEDS: ACYCLOVIR SODIUM INJ 800 MG in SODIUM CHLORIDE 0.9% 250ML 250 ML IV SCH ×3 (02:37→19:56)
[2020-04-23] MEDS ORDERED: ACYCLOVIR SODIUM 800 MG in SODIUM CHLORIDE 0.9% 250ML 250 ML IV SCH ×2 (03:00→06:00)
[2020-04-23] MEDS: IPRATROPIUM BROMIDE 0.02% 2.5 ML NEB NEB SCH ×4 (04:37→13:00)
[2020-04-23] MEDS: CALCIUM CARBONATE 500 MG CHEWABLE TABS PO SCH ×4 (08:00→16:57)
[2020-04-23] MEDS: CALCITRIOL 0.25 MCG CAP PO SCH ×2 (09:00→10:46)
[2020-04-23] MEDS: POTASSIUM CHLORIDE 20 MEQ TAB CR PO SCH ×2 (09:00→10:46)
[2020-04-23] MEDS: SODIUM CHLORIDE 1 GM TAB PO SCH ×4 (09:00→20:57)
[2020-04-23] MEDS: FLUTICASONE PROPIONATE NASAL SPRAY NS SCH ×3 (09:00→16:57)
[2020-04-23] MEDS: LABETALOL HCL 5 MG/ML 20ML VIAL IV PRN (11:31)
[2020-04-23] MEDS ORDERED: CHLORDIAZEPOXIDE HCL 10 MG CAP PO PRN (13:15)
[2020-04-23] MEDS: IRON SUCROSE 100 MG in SODIUM CHLORIDE 0.9% 100 ML 100 ML IV SCH (13:50)
[2020-04-23] MEDS ORDERED: MULTIVITAMINS/MINERALS TAB PO ONE (14:30)
[2020-04-23] MEDS: FOLIC ACID MDV 5 MG, THIAMINE HCL INJ 100 MG in SODIUM CHLORIDE 0.9% 1000ML 1,000 ML IV SCH (16:41)
[2020-04-23] MEDS: FLUCONAZOLE 400MG/200ML BAG 200 ML IV SCH (16:43)
[2020-04-23] MEDS: SODIUM CHLORIDE 0.9% IV SCH (16:54)
[2020-04-23] MEDS: RIFAMPIN IV SCH (16:54)
[2020-04-23 19:22] LABS: HIV 1&2 AB SCREEN NON-REACTIVE (NONREACTIVE)
[2020-04-23] MEDS: RIVAROXABAN 20 MG TABLET PO SCH (19:56)
[2020-04-23] MEDS: DEXAMETHASONE SOD PHOS 10 MG/1 ML VIAL IV SCH (20:57)
[2020-04-23] MEDS ORDERED: DEXAMETHASONE PHOS 4MG/ML 5ML MULTIDOSE VIAL IV SCH (21:00)
[2020-04-24] VITALS (10 sets, daily range): BP systolic 117–164; BP diastolic 77–106
[2020-04-24] MEDS: METOPROLOL TARTRATE INJ 1 MG/ML VIAL IV SCH ×5 (00:12→23:37)
[2020-04-24] MEDS: LEVALBUTEROL HCL SOLN NEBU 1.25 MG/3 ML NEB INH SCH ×5 (01:10→19:10)
[2020-04-24] MEDS: IPRATROPIUM BROMIDE 0.02% 2.5 ML NEB NEB SCH ×4 (01:10→19:10)
[2020-04-24] MEDS: SODIUM CHLORIDE 0.9% 1000ML 1,000 ML IV SCH ×2 (01:15→11:37)
[2020-04-24] MEDS: BUMETANIDE INJ 0.25MG/ML 4ML VIAL IV SCH ×3 (02:03→18:01)
[2020-04-24] MEDS: ACYCLOVIR SODIUM INJ 800 MG in SODIUM CHLORIDE 0.9% 250ML 250 ML IV SCH ×3 (02:07→18:01)
[2020-04-24 06:00] LABS: BASOPHILS % 0.5 % (0.0-1.0); EOSINOPHILS # (AUTO) 0.2 (0.0-0.4); EOSINOPHILS % 3.4 % (0.0-6.0); HEMATOCRIT 43.2 % (38.2-49.6); LYMPHOCYTES # (AUTO) 1.9 (1.0-3.2); LYMPHOCYTES % 29.6 % (18.0-39.1); MEAN CORPUSCULAR HEMOGLOBIN 24.2 pg (28-32); MEAN CORPUSCULAR HGB CONC 32.4 g/dL (31-35); MEAN CORPUSCULAR VOLUME 74.6 fL (81-99); MONOCYTES # (AUTO) 0.4 (0.2-0.8); MONOCYTES % 6.3 % (4.4-11.3); NEUTROPHILS # (AUTO) 3.9 (2.1-6.9); NEUTROPHILS % 59.9 % (38.7-80.0); PLATELET COUNT 343 x10e3/uL (140-360); RED BLOOD COUNT 5.79 x10e6/uL (4.3-5.7); RED CELL DISTRIBUTION WIDTH 13.3 % (11.7-14.4)
[2020-04-24 06:15] LABS: ALANINE AMINOTRANSFERASE 18 IU/L (0-55); ALBUMIN 2.8 g/dL (3.5-5.0); ALBUMIN/GLOBULIN RATIO 0.7 (0.8-2.0); ALKALINE PHOSPHATASE 63 IU/L (40-150); ANION GAP 15.8 mmol/L (8-16); BLOOD UREA NITROGEN 8 mg/dL (7-26); BUN/CREATININE RATIO 10 (6-25); CALCIUM 8.9 mg/dL (8.4-10.2); CARBON DIOXIDE 31 mmol/L (22-29); CHLORIDE 92 mmol/L (98-107); EST GLOMERULAR FILTRATION RATE > 60 ML/MIN (60-); GLUCOSE 301 mg/dL (74-118); MAGNESIUM 1.4 MG/DL (1.3-2.1); POTASSIUM 3.8 mmol/L (3.5-5.1); SODIUM 135 mmol/L (136-145)
[2020-04-24] MEDS ORDERED: DEXTROSE 50% SYRINGE 50 ML IV PRN (07:15)
[2020-04-24] MEDS: INSULIN LISPRO 100 UNIT/1 ML 3ML VIAL SQ SCH ×4 (07:30→20:37)
[2020-04-24] MEDS: DEXAMETHASONE SOD PHOS 10 MG/1 ML VIAL IV SCH ×2 (07:57→20:37)
[2020-04-24] MEDS: POTASSIUM CHLORIDE 20 MEQ TAB CR PO SCH (07:57)
[2020-04-24] MEDS: ISONIAZID 300 MG TAB PO SCH (07:57)
[2020-04-24] MEDS: CALCIUM CARBONATE 500 MG CHEWABLE TABS PO SCH ×3 (07:57→18:01)
[2020-04-24] MEDS: SODIUM CHLORIDE 1 GM TAB PO SCH ×3 (07:58→20:37)
[2020-04-24] MEDS: PYRIDOXINE HCL 50 MG TAB PO SCH (07:58)
[2020-04-24] MEDS: CALCITRIOL 0.25 MCG CAP PO SCH (07:58)
[2020-04-24] MEDS: ETHAMBUTOL HCL 400 MG TAB PO SCH (07:58)
[2020-04-24] MEDS: FLUTICASONE PROPIONATE NASAL SPRAY NS SCH ×2 (08:14→18:01)
[2020-04-24] MEDS: PYRAZINAMIDE 500 MG TAB PO SCH (09:00)
[2020-04-24] MEDS: FOLIC ACID MDV 5 MG, THIAMINE HCL INJ 100 MG in SODIUM CHLORIDE 0.9% 1000ML 1,000 ML IV SCH (11:29)
[2020-04-24] MEDS: IRON SUCROSE 100 MG in SODIUM CHLORIDE 0.9% 100 ML 100 ML IV SCH (12:15)
[2020-04-24] MEDS: FLUCONAZOLE 400MG/200ML BAG 200 ML IV SCH (14:47)
[2020-04-24] MEDS: RIFAMPIN IV SCH (15:14)
[2020-04-24] MEDS: SODIUM CHLORIDE 0.9% IV SCH (15:14)
[2020-04-24] MEDS: RIFAMPIN 300 MG CAP PO SCH (18:01)
[2020-04-24] MEDS: HYDRALAZINE HCL 20 MG/ML VIAL IV PRN (22:57)
[2020-04-25] VITALS (13 sets, daily range): BP systolic 125–160; BP diastolic 76–100
[2020-04-25] MEDS: LEVALBUTEROL HCL SOLN NEBU 1.25 MG/3 ML NEB INH SCH ×4 (00:34→18:30)
[2020-04-25] MEDS: IPRATROPIUM BROMIDE 0.02% 2.5 ML NEB NEB SCH ×4 (00:35→18:20)
[2020-04-25] MEDS: BUMETANIDE INJ 0.25MG/ML 4ML VIAL IV SCH ×3 (02:17→17:40)
[2020-04-25] MEDS: ACYCLOVIR SODIUM INJ 800 MG in SODIUM CHLORIDE 0.9% 250ML 250 ML IV SCH ×3 (02:30→17:58)
[2020-04-25] MEDS: SODIUM CHLORIDE 0.9% 1000ML 1,000 ML IV SCH (02:54)
[2020-04-25] MEDS: FOLIC ACID MDV 5 MG, THIAMINE HCL INJ 100 MG in SODIUM CHLORIDE 0.9% 1000ML 1,000 ML IV SCH (05:30)
[2020-04-25] MEDS: METOPROLOL TARTRATE INJ 1 MG/ML VIAL IV SCH ×3 (05:54→17:41)
[2020-04-25] MEDS: DEXAMETHASONE SOD PHOS 10 MG/1 ML VIAL IV SCH ×2 (08:13→19:51)
[2020-04-25] MEDS: CALCIUM CARBONATE 500 MG CHEWABLE TABS PO SCH ×3 (08:13→16:19)
[2020-04-25] MEDS: INSULIN LISPRO 100 UNIT/1 ML 3ML VIAL SQ SCH ×4 (08:13→21:00)
[2020-04-25] MEDS: FLUTICASONE PROPIONATE NASAL SPRAY NS SCH ×2 (08:13→16:20)
[2020-04-25] MEDS: RIFAMPIN 300 MG CAP PO SCH ×2 (08:14→16:19)
[2020-04-25] MEDS: ETHAMBUTOL HCL 400 MG TAB PO SCH (08:14)
[2020-04-25] MEDS: CALCITRIOL 0.25 MCG CAP PO SCH (08:14)
[2020-04-25] MEDS: PYRIDOXINE HCL 50 MG TAB PO SCH (08:14)
[2020-04-25] MEDS: PYRAZINAMIDE 500 MG TAB PO SCH (08:14)
[2020-04-25] MEDS: ISONIAZID 300 MG TAB PO SCH (08:14)
[2020-04-25] MEDS: SODIUM CHLORIDE 1 GM TAB PO SCH ×3 (08:14→19:51)
[2020-04-25] MEDS: POTASSIUM CHLORIDE 20 MEQ TAB CR PO SCH (08:14)
[2020-04-25] MEDS: IRON-VITAMIN-MINERAL CAPSULE PO SCH ×2 (08:14→16:19)
[2020-04-25] MEDS: FLUCONAZOLE 400MG/200ML BAG 200 ML IV SCH (14:37)
[2020-04-25] MEDS: SODIUM CHLORIDE 0.9% IV SCH (16:00)
[2020-04-25] MEDS: RIFAMPIN IV SCH (16:00)
[2020-04-25] MEDS ORDERED: INSULIN GLARGINE 100 UNITS/ML VIAL SQ SCH (21:00)
[2020-04-25] MEDS: HYDRALAZINE HCL 20 MG/ML VIAL IV PRN (22:26)
[2020-04-26] VITALS (9 sets, daily range): BP systolic 131–162; BP diastolic 83–99
[2020-04-26] MEDS: METOPROLOL TARTRATE INJ 1 MG/ML VIAL IV SCH ×4 (00:19→19:54)
[2020-04-26] MEDS: IPRATROPIUM BROMIDE 0.02% 2.5 ML NEB NEB SCH ×4 (00:31→19:45)
[2020-04-26] MEDS: LEVALBUTEROL HCL SOLN NEBU 1.25 MG/3 ML NEB INH SCH ×4 (00:31→19:45)
[2020-04-26] MEDS: BUMETANIDE INJ 0.25MG/ML 4ML VIAL IV SCH ×2 (02:13→09:52)
[2020-04-26] MEDS: ACYCLOVIR SODIUM INJ 800 MG in SODIUM CHLORIDE 0.9% 250ML 250 ML IV SCH ×3 (02:14→20:15)
[2020-04-26] MEDS: FOLIC ACID MDV 5 MG, THIAMINE HCL INJ 100 MG in SODIUM CHLORIDE 0.9% 1000ML 1,000 ML IV SCH (02:14)
[2020-04-26 05:12] LABS: BASOPHILS % 0.1 % (0.0-1.0); HEMOGLOBIN 11.5 g/dL (14.0-18.0); LYMPHOCYTES # (AUTO) 1.1 (1.0-3.2); LYMPHOCYTES % 9.7 % (18.0-39.1); MEAN CORPUSCULAR HGB CONC 33.8 g/dL (31-35); MEAN CORPUSCULAR VOLUME 97.7 fL (81-99); MONOCYTES # (AUTO) 0.8 (0.2-0.8); MONOCYTES % 7.1 % (4.4-11.3); NEUTROPHILS # (AUTO) 9.4 (2.1-6.9); NEUTROPHILS % 81.4 % (38.7-80.0); PLATELET COUNT 438 x10e3/uL (140-360); RED BLOOD COUNT 3.48 x10e6/uL (4.3-5.7); RED CELL DISTRIBUTION WIDTH 13.3 % (11.7-14.4)
[2020-04-26 05:41] LABS: ALANINE AMINOTRANSFERASE 20 IU/L (0-55); ALBUMIN 3.1 g/dL (3.5-5.0); ALBUMIN/GLOBULIN RATIO 0.9 (0.8-2.0); ALKALINE PHOSPHATASE 61 IU/L (40-150); ANION GAP 15.8 mmol/L (8-16); BLOOD UREA NITROGEN 14 mg/dL (7-26); BUN/CREATININE RATIO 16 (6-25); CALCIUM 9.5 mg/dL (8.4-10.2); CARBON DIOXIDE 30 mmol/L (22-29); CHLORIDE 95 mmol/L (98-107); CREATININE, SERUM 0.88 mg/dL (0.72-1.25); EST GLOMERULAR FILTRATION RATE > 60 ML/MIN (60-); GLUCOSE 318 mg/dL (74-118); POTASSIUM 3.8 mmol/L (3.5-5.1); SODIUM 137 mmol/L (136-145)
[2020-04-26] MEDS: CALCIUM CARBONATE 500 MG CHEWABLE TABS PO SCH ×3 (09:38→18:07)
[2020-04-26] MEDS: INSULIN LISPRO 100 UNIT/1 ML 3ML VIAL SQ SCH ×5 (09:38→22:10)
[2020-04-26] MEDS: DEXAMETHASONE SOD PHOS 10 MG/1 ML VIAL IV SCH ×2 (09:39→21:59)
[2020-04-26] MEDS: IRON-VITAMIN-MINERAL CAPSULE PO SCH ×2 (09:39→18:07)
[2020-04-26] MEDS: FLUTICASONE PROPIONATE NASAL SPRAY NS SCH ×2 (09:39→18:06)
[2020-04-26] MEDS: ISONIAZID 300 MG TAB PO SCH (09:40)
[2020-04-26] MEDS: CALCITRIOL 0.25 MCG CAP PO SCH (09:41)
[2020-04-26] MEDS: PYRIDOXINE HCL 50 MG TAB PO SCH (09:41)
[2020-04-26] MEDS: RIFAMPIN 300 MG CAP PO SCH ×2 (09:41→18:06)
[2020-04-26] MEDS: POTASSIUM CHLORIDE 20 MEQ TAB CR PO SCH (09:41)
[2020-04-26] MEDS: ETHAMBUTOL HCL 400 MG TAB PO SCH (09:42)
[2020-04-26] MEDS: PYRAZINAMIDE 500 MG TAB PO SCH (11:00)
[2020-04-26] MEDS: SODIUM CHLORIDE 1 GM TAB PO SCH (11:00)
[2020-04-26] MEDS: FLUCONAZOLE 400MG/200ML BAG 200 ML IV SCH ×2 (15:00→19:54)
[2020-04-26 15:10] LABS: IGG/ALB RATIO CSF 0.21 (0.00-0.25)
[2020-04-26] MEDS ORDERED: GADOBENATE DIMEGLUMINE 1 ML IV ONE (15:17)
[2020-04-26] MEDS: RIFAMPIN IV SCH (16:00)
[2020-04-26] MEDS: SODIUM CHLORIDE 0.9% IV SCH (16:00)
[2020-04-26 17:01] LABS: CSF/SERUM ALBUMIN INDEX 47 (0-8)
[2020-04-26] MEDS: RIVAROXABAN 20 MG TABLET PO SCH (18:07)
[2020-04-26] MEDS: INSULIN GLARGINE 100 UNITS/ML VIAL SQ SCH (22:10)
[2020-04-26] MEDS ORDERED: HEPARIN SOD (PORCINE) 1000 UNIT/ML SDV IV PRN (22:15)
[2020-04-26] MEDS ORDERED: SODIUM CHLORIDE 0.9% 1000ML 2,000 ML IV PRN (22:15)
[2020-04-27] VITALS (7 sets, daily range): BP systolic 122–152; BP diastolic 83–96
[2020-04-27] MEDS: LEVALBUTEROL HCL SOLN NEBU 1.25 MG/3 ML NEB INH SCH ×4 (01:00→20:00)
[2020-04-27] MEDS: IPRATROPIUM BROMIDE 0.02% 2.5 ML NEB NEB SCH ×4 (01:00→20:00)
[2020-04-27] MEDS: METOPROLOL TARTRATE INJ 1 MG/ML VIAL IV SCH ×4 (01:45→18:07)
[2020-04-27] MEDS: ACYCLOVIR SODIUM INJ 800 MG in SODIUM CHLORIDE 0.9% 250ML 250 ML IV SCH ×3 (03:36→17:49)
[2020-04-27] MEDS: FOLIC ACID MDV 5 MG, THIAMINE HCL INJ 100 MG in SODIUM CHLORIDE 0.9% 1000ML 1,000 ML IV SCH ×2 (04:53→22:00)
[2020-04-27] MEDS: CYANOCOBALAMIN INJ 1,000 MCG/ML VIAL IM SCH (05:25)
[2020-04-27] MEDS: INSULIN LISPRO 100 UNIT/1 ML 3ML VIAL SQ SCH ×7 (07:30→22:00)
[2020-04-27] MEDS: CALCIUM CARBONATE 500 MG CHEWABLE TABS PO SCH ×4 (08:30→17:33)
[2020-04-27] MEDS: IRON-VITAMIN-MINERAL CAPSULE PO SCH ×2 (08:44→17:33)
[2020-04-27] MEDS: FLUTICASONE PROPIONATE NASAL SPRAY NS SCH ×2 (08:44→17:33)
[2020-04-27] MEDS: RIFAMPIN 300 MG CAP PO SCH ×2 (08:45→17:33)
[2020-04-27] MEDS: DEXAMETHASONE SOD PHOS 10 MG/1 ML VIAL IV SCH ×3 (08:45→22:00)
[2020-04-27] MEDS: CALCITRIOL 0.25 MCG CAP PO SCH ×2 (08:45→08:50)
[2020-04-27] MEDS: PYRAZINAMIDE 500 MG TAB PO SCH ×2 (08:45→08:50)
[2020-04-27] MEDS: POTASSIUM CHLORIDE 20 MEQ TAB CR PO SCH ×2 (08:48→08:50)
[2020-04-27] MEDS: ISONIAZID 300 MG TAB PO SCH ×2 (08:48→08:50)
[2020-04-27] MEDS: PYRIDOXINE HCL 50 MG TAB PO SCH ×2 (08:48→08:50)
[2020-04-27] MEDS: ETHAMBUTOL HCL 400 MG TAB PO SCH ×2 (08:49→08:50)
[2020-04-27] MEDS: RIVAROXABAN 20 MG TABLET PO SCH (17:33)
[2020-04-27] MEDS: FLUCONAZOLE 400MG/200ML BAG 200 ML IV SCH (17:33)
[2020-04-27] MEDS: INSULIN GLARGINE 100 UNITS/ML VIAL SQ SCH (22:00)
[2020-04-28] VITALS (7 sets, daily range): BP systolic 143–153; BP diastolic 94–109
[2020-04-28] MEDS: IPRATROPIUM BROMIDE 0.02% 2.5 ML NEB NEB SCH ×4 (01:00→19:55)
[2020-04-28] MEDS: LEVALBUTEROL HCL SOLN NEBU 1.25 MG/3 ML NEB INH SCH ×4 (01:00→19:55)
[2020-04-28] MEDS: ACYCLOVIR SODIUM INJ 800 MG in SODIUM CHLORIDE 0.9% 250ML 250 ML IV SCH ×3 (02:30→18:30)
[2020-04-28] MEDS: METOPROLOL TARTRATE INJ 1 MG/ML VIAL IV SCH ×2 (05:47)
[2020-04-28 06:17] LABS: BASOPHILS % 0.2 % (0.0-1.0); HEMATOCRIT 29.9 % (38.2-49.6); LYMPHOCYTES # (AUTO) 1.3 (1.0-3.2); LYMPHOCYTES % 11.3 % (18.0-39.1); MEAN CORPUSCULAR HEMOGLOBIN 33.3 pg (28-32); MEAN CORPUSCULAR HGB CONC 33.4 g/dL (31-35); MEAN CORPUSCULAR VOLUME 99.7 fL (81-99); MONOCYTES # (AUTO) 0.7 (0.2-0.8); MONOCYTES % 6.3 % (4.4-11.3); NEUTROPHILS % 78.8 % (38.7-80.0); PLATELET COUNT 316 x10e3/uL (140-360); RED CELL DISTRIBUTION WIDTH 13.4 % (11.7-14.4)
[2020-04-28] MEDS: INSULIN LISPRO 100 UNIT/1 ML 3ML VIAL SQ SCH ×7 (07:30→22:00)
[2020-04-28] MEDS: POTASSIUM CHLORIDE 20 MEQ TAB CR PO SCH (08:01)
[2020-04-28] MEDS: ISONIAZID 300 MG TAB PO SCH (08:01)
[2020-04-28] MEDS: IRON-VITAMIN-MINERAL CAPSULE PO SCH ×2 (08:01→16:24)
[2020-04-28] MEDS: FLUTICASONE PROPIONATE NASAL SPRAY NS SCH ×2 (08:01→16:24)
[2020-04-28] MEDS: DEXAMETHASONE SOD PHOS 10 MG/1 ML VIAL IV SCH ×2 (08:01→21:31)
[2020-04-28] MEDS: CALCIUM CARBONATE 500 MG CHEWABLE TABS PO SCH ×3 (08:01→16:24)
[2020-04-28] MEDS: PYRAZINAMIDE 500 MG TAB PO SCH (08:02)
[2020-04-28] MEDS: RIFAMPIN 300 MG CAP PO SCH ×2 (08:02→16:24)
[2020-04-28] MEDS: CALCITRIOL 0.25 MCG CAP PO SCH (08:02)
[2020-04-28] MEDS: ETHAMBUTOL HCL 400 MG TAB PO SCH (08:02)
[2020-04-28] MEDS: PYRIDOXINE HCL 50 MG TAB PO SCH (12:51)
[2020-04-28] MEDS: NIFEDIPINE CR 30 MG TAB PO SCH (12:52)
[2020-04-28] MEDS: FOLIC ACID MDV 5 MG, THIAMINE HCL INJ 100 MG in SODIUM CHLORIDE 0.9% 1000ML 1,000 ML IV SCH (14:12)
[2020-04-28] MEDS: FLUCONAZOLE 400MG/200ML BAG 200 ML IV SCH (15:13)
[2020-04-28] MEDS: RIVAROXABAN 20 MG TABLET PO SCH (16:24)
[2020-04-28] MEDS: INSULIN GLARGINE 100 UNITS/ML VIAL SQ SCH (22:02)
[2020-04-29] VITALS: BP 153/94
[2020-04-29] MEDS: LEVALBUTEROL HCL SOLN NEBU 1.25 MG/3 ML NEB INH SCH ×4 (02:20→19:30)
[2020-04-29] MEDS: IPRATROPIUM BROMIDE 0.02% 2.5 ML NEB NEB SCH ×4 (02:20→19:30)
[2020-04-29] MEDS: ACYCLOVIR SODIUM INJ 800 MG in SODIUM CHLORIDE 0.9% 250ML 250 ML IV SCH ×3 (02:28→16:26)
[2020-04-29] MEDS ORDERED: SODIUM CHLORIDE 0.9% 250ML 250 ML ONE (07:29)
[2020-04-29] MEDS: INSULIN LISPRO 100 UNIT/1 ML 3ML VIAL SQ SCH ×7 (07:30→21:45)
[2020-04-29 07:34] VITALS: BP 149/94
[2020-04-29 08:00] VITALS: BP 149/94
[2020-04-29] MEDS: FLUTICASONE PROPIONATE NASAL SPRAY NS SCH ×2 (08:23→16:26)
[2020-04-29] MEDS: PYRIDOXINE HCL 50 MG TAB PO SCH (08:23)
[2020-04-29] MEDS: CALCITRIOL 0.25 MCG CAP PO SCH (08:23)
[2020-04-29] MEDS: ETHAMBUTOL HCL 400 MG TAB PO SCH (08:23)
[2020-04-29] MEDS: PYRAZINAMIDE 500 MG TAB PO SCH (08:23)
[2020-04-29] MEDS: RIFAMPIN 300 MG CAP PO SCH ×2 (08:23→16:26)
[2020-04-29] MEDS: IRON-VITAMIN-MINERAL CAPSULE PO SCH ×2 (08:24→16:26)
[2020-04-29] MEDS: NIFEDIPINE CR 30 MG TAB PO SCH (08:24)
[2020-04-29] MEDS: DEXAMETHASONE SOD PHOS 10 MG/1 ML VIAL IV SCH (08:24)
[2020-04-29] MEDS: CALCIUM CARBONATE 500 MG CHEWABLE TABS PO SCH ×3 (08:24→16:26)
[2020-04-29] MEDS: ISONIAZID 300 MG TAB PO SCH (08:24)
[2020-04-29] MEDS: FOLIC ACID MDV 5 MG, THIAMINE HCL INJ 100 MG in SODIUM CHLORIDE 0.9% 1000ML 1,000 ML IV SCH (10:00)
[2020-04-29 12:14] VITALS: BP 134/78
[2020-04-29 15:54] VITALS: BP 155/103
[2020-04-29] MEDS: RIVAROXABAN 20 MG TABLET PO SCH (16:26)
[2020-04-29] MEDS: HYDRALAZINE HCL 20 MG/ML VIAL IV PRN (16:27)
[2020-04-29 20:00] VITALS: BP 124/86
[2020-04-29] MEDS ORDERED: INSULIN GLARGINE 100 UNITS/ML VIAL SQ SCH (21:00)
[2020-04-30] VITALS: BP 136/87
[2020-04-30] MEDS: LEVALBUTEROL HCL SOLN NEBU 1.25 MG/3 ML NEB INH SCH ×4 (00:50→19:50)
[2020-04-30] MEDS: IPRATROPIUM BROMIDE 0.02% 2.5 ML NEB NEB SCH ×4 (00:50→19:50)
[2020-04-30] MEDS: FOLIC ACID MDV 5 MG, THIAMINE HCL INJ 100 MG in SODIUM CHLORIDE 0.9% 1000ML 1,000 ML IV SCH (06:45)
[2020-04-30] MEDS: INSULIN LISPRO 100 UNIT/1 ML 3ML VIAL SQ SCH ×8 (07:30→21:38)
[2020-04-30 08:53] VITALS: BP 152/92
[2020-04-30] MEDS: FLUTICASONE PROPIONATE NASAL SPRAY NS SCH ×2 (09:00→17:34)
[2020-04-30] MEDS: ISONIAZID 300 MG TAB PO SCH (10:31)
[2020-04-30] MEDS: IRON-VITAMIN-MINERAL CAPSULE PO SCH ×2 (10:31→17:34)
[2020-04-30] MEDS: RIFAMPIN 300 MG CAP PO SCH ×2 (10:31→17:34)
[2020-04-30] MEDS: PYRIDOXINE HCL 50 MG TAB PO SCH (10:31)
[2020-04-30] MEDS: NIFEDIPINE CR 30 MG TAB PO SCH (10:31)
[2020-04-30] MEDS: CALCITRIOL 0.25 MCG CAP PO SCH (10:31)
[2020-04-30] MEDS: PYRAZINAMIDE 500 MG TAB PO SCH (10:31)
[2020-04-30] MEDS: ETHAMBUTOL HCL 400 MG TAB PO SCH (10:31)
[2020-04-30] MEDS: CALCIUM CARBONATE 500 MG CHEWABLE TABS PO SCH ×3 (10:31→17:34)
[2020-04-30] MEDS ORDERED: FUROSEMIDE INJ 10 MG/ML 2 ML VIAL IV NR (11:45)
[2020-04-30 12:19] VITALS: BP 135/93
[2020-04-30 15:53] LABS: ANION GAP 12.5 mmol/L (8-16); BLOOD UREA NITROGEN 17 mg/dL (7-26); BUN/CREATININE RATIO 20 (6-25); CALCIUM 9.3 mg/dL (8.4-10.2); CARBON DIOXIDE 32 mmol/L (22-29); CHLORIDE 94 mmol/L (98-107); CREATININE, SERUM 0.83 mg/dL (0.72-1.25); EST GLOMERULAR FILTRATION RATE > 60 ML/MIN (60-); GLUCOSE 81 mg/dL (74-118); POTASSIUM 3.5 mmol/L (3.5-5.1); SODIUM 135 mmol/L (136-145)
[2020-04-30 16:34] VITALS: BP 163/92
[2020-04-30] MEDS: FUROSEMIDE INJ 10 MG/ML 2 ML VIAL IV SCH (17:34)
[2020-04-30] MEDS: RIVAROXABAN 20 MG TABLET PO SCH (17:34)
[2020-04-30 20:00] VITALS: BP 150/104
[2020-04-30 20:52] VITALS: BP 150/104
[2020-04-30] MEDS ORDERED: INSULIN GLARGINE 100 UNITS/ML VIAL SQ SCH (21:00)
[2020-04-30] MEDS: ACYCLOVIR SODIUM 800 MG in SODIUM CHLORIDE 0.9% 250ML 250 ML IV SCH (21:34)
[2020-05-01] VITALS (7 sets, daily range): BP systolic 110–155; BP diastolic 73–95
[2020-05-01] MEDS: LEVALBUTEROL HCL SOLN NEBU 1.25 MG/3 ML NEB INH SCH ×4 (00:48→19:15)
[2020-05-01] MEDS: IPRATROPIUM BROMIDE 0.02% 2.5 ML NEB NEB SCH ×4 (00:48→19:15)
[2020-05-01 04:44] LABS: BASOPHILS % 0.4 % (0.0-1.0); EOSINOPHILS # (AUTO) 0.2 (0.0-0.4); EOSINOPHILS % 1.5 % (0.0-6.0); HEMATOCRIT 34.7 % (38.2-49.6); HEMOGLOBIN 11.6 g/dL (14.0-18.0); LYMPHOCYTES # (AUTO) 2.1 (1.0-3.2); LYMPHOCYTES % 18.7 % (18.0-39.1); MEAN CORPUSCULAR HEMOGLOBIN 33.3 pg (28-32); MEAN CORPUSCULAR HGB CONC 33.4 g/dL (31-35); MEAN CORPUSCULAR VOLUME 99.7 fL (81-99); MONOCYTES # (AUTO) 1.1 (0.2-0.8); MONOCYTES % 10.1 % (4.4-11.3); NEUTROPHILS # (AUTO) 7.2 (2.1-6.9); NEUTROPHILS % 64.9 % (38.7-80.0); PLATELET COUNT 214 x10e3/uL (140-360); RED BLOOD COUNT 3.48 x10e6/uL (4.3-5.7); RED CELL DISTRIBUTION WIDTH 14.3 % (11.7-14.4)
[2020-05-01 05:01] LABS: ANION GAP 11.5 mmol/L (8-16); BLOOD UREA NITROGEN 15 mg/dL (7-26); BUN/CREATININE RATIO 19 (6-25); CALCIUM 8.6 mg/dL (8.4-10.2); CARBON DIOXIDE 32 mmol/L (22-29); CHLORIDE 96 mmol/L (98-107); CREATININE, SERUM 0.79 mg/dL (0.72-1.25); EST GLOMERULAR FILTRATION RATE > 60 ML/MIN (60-); GLUCOSE 77 mg/dL (74-118); POTASSIUM 3.5 mmol/L (3.5-5.1); SODIUM 136 mmol/L (136-145)
[2020-05-01] MEDS: ACYCLOVIR SODIUM 800 MG in SODIUM CHLORIDE 0.9% 250ML 250 ML IV SCH ×3 (05:12→21:36)
[2020-05-01] MEDS: FOLIC ACID MDV 5 MG, THIAMINE HCL INJ 100 MG in SODIUM CHLORIDE 0.9% 1000ML 1,000 ML IV SCH ×2 (09:00→09:20)
[2020-05-01] MEDS: CALCIUM CARBONATE 500 MG CHEWABLE TABS PO SCH ×3 (09:20→18:27)
[2020-05-01] MEDS: PYRIDOXINE HCL 50 MG TAB PO SCH (09:21)
[2020-05-01] MEDS: PYRAZINAMIDE 500 MG TAB PO SCH (09:21)
[2020-05-01] MEDS: CALCITRIOL 0.25 MCG CAP PO SCH (09:21)
[2020-05-01] MEDS: RIFAMPIN 300 MG CAP PO SCH ×2 (09:21→18:27)
[2020-05-01] MEDS: IRON-VITAMIN-MINERAL CAPSULE PO SCH ×2 (09:21→18:27)
[2020-05-01] MEDS: ISONIAZID 300 MG TAB PO SCH (09:21)
[2020-05-01] MEDS: NIFEDIPINE CR 30 MG TAB PO SCH (09:21)
[2020-05-01] MEDS: ETHAMBUTOL HCL 400 MG TAB PO SCH (09:21)
[2020-05-01] MEDS: FUROSEMIDE INJ 10 MG/ML 2 ML VIAL IV SCH ×2 (09:21→18:27)
[2020-05-01] MEDS: FLUTICASONE PROPIONATE NASAL SPRAY NS SCH ×2 (09:21→18:27)
[2020-05-01] MEDS: INSULIN LISPRO 100 UNIT/1 ML 3ML VIAL SQ SCH ×7 (09:26→21:00)
[2020-05-01] MEDS: RIVAROXABAN 20 MG TABLET PO SCH (18:27)
[2020-05-01] MEDS: INSULIN GLARGINE 100 UNITS/ML VIAL SQ SCH (21:00)
[2020-05-02] VITALS (7 sets, daily range): BP systolic 134–158; BP diastolic 84–107
[2020-05-02] MEDS: IPRATROPIUM BROMIDE 0.02% 2.5 ML NEB NEB SCH ×4 (02:25→19:40)
[2020-05-02] MEDS: LEVALBUTEROL HCL SOLN NEBU 1.25 MG/3 ML NEB INH SCH ×4 (02:25→19:40)
[2020-05-02] MEDS: ACYCLOVIR SODIUM 800 MG in SODIUM CHLORIDE 0.9% 250ML 250 ML IV SCH ×3 (05:46→20:55)
[2020-05-02] MEDS: INSULIN LISPRO 100 UNIT/1 ML 3ML VIAL SQ SCH ×7 (07:30→21:00)
[2020-05-02] MEDS: CALCIUM CARBONATE 500 MG CHEWABLE TABS PO SCH ×3 (08:00→18:17)
[2020-05-02] MEDS: PYRAZINAMIDE 500 MG TAB PO SCH (09:00)
[2020-05-02] MEDS: PYRIDOXINE HCL 50 MG TAB PO SCH (09:00)
[2020-05-02] MEDS: CALCITRIOL 0.25 MCG CAP PO SCH (09:00)
[2020-05-02] MEDS: NIFEDIPINE CR 30 MG TAB PO SCH (09:00)
[2020-05-02] MEDS: IRON-VITAMIN-MINERAL CAPSULE PO SCH ×2 (09:00→18:17)
[2020-05-02] MEDS: ETHAMBUTOL HCL 400 MG TAB PO SCH (09:00)
[2020-05-02] MEDS: FLUTICASONE PROPIONATE NASAL SPRAY NS SCH ×2 (09:00→17:30)
[2020-05-02] MEDS: FUROSEMIDE INJ 10 MG/ML 2 ML VIAL IV SCH ×2 (09:00→17:30)
[2020-05-02] MEDS: ISONIAZID 300 MG TAB PO SCH (09:00)
[2020-05-02] MEDS: RIFAMPIN 300 MG CAP PO SCH ×2 (09:00→18:17)
[2020-05-02] MEDS: CARVEDILOL 3.125 MG TAB PO SCH (17:30)
[2020-05-02] MEDS: RIVAROXABAN 20 MG TABLET PO SCH (18:17)
[2020-05-02] MEDS: INSULIN GLARGINE 100 UNITS/ML VIAL SQ SCH (21:00)
[2020-05-03 00:18] VITALS: BP 160/104
[2020-05-03] MEDS: IPRATROPIUM BROMIDE 0.02% 2.5 ML NEB NEB SCH ×2 (00:40→06:46)
[2020-05-03] MEDS: LEVALBUTEROL HCL SOLN NEBU 1.25 MG/3 ML NEB INH SCH ×2 (00:40→06:46)
[2020-05-03 04:47] VITALS: BP 148/93
[2020-05-03] MEDS: ACYCLOVIR SODIUM 800 MG in SODIUM CHLORIDE 0.9% 250ML 250 ML IV SCH (05:37)
[2020-05-03] MEDS: INSULIN LISPRO 100 UNIT/1 ML 3ML VIAL SQ SCH ×2 (07:30)
[2020-05-03] MEDS: CARVEDILOL 3.125 MG TAB PO SCH (08:00)
[2020-05-03] MEDS: CALCIUM CARBONATE 500 MG CHEWABLE TABS PO SCH (08:00)
[2020-05-03 08:30] VITALS: BP 121/80
[2020-05-03 08:31] VITALS: BP 121/80
[2020-05-03] MEDS: IRON-VITAMIN-MINERAL CAPSULE PO SCH (08:50)
[2020-05-03] MEDS: FUROSEMIDE INJ 10 MG/ML 2 ML VIAL IV SCH (08:50)
[2020-05-03] MEDS: FLUTICASONE PROPIONATE NASAL SPRAY NS SCH (08:50)
[2020-05-03] MEDS: ISONIAZID 300 MG TAB PO SCH (08:51)
[2020-05-03] MEDS: PYRIDOXINE HCL 50 MG TAB PO SCH (08:51)
[2020-05-03] MEDS: ETHAMBUTOL HCL 400 MG TAB PO SCH (08:51)
[2020-05-03] MEDS: RIFAMPIN 300 MG CAP PO SCH (08:51)
[2020-05-03] MEDS: CALCITRIOL 0.25 MCG CAP PO SCH (08:51)
[2020-05-03] MEDS: PYRAZINAMIDE 500 MG TAB PO SCH (08:51)
[2020-05-03] MEDS: NIFEDIPINE CR 30 MG TAB PO SCH (08:51)
== END 2020-05-03 11:44 | disposition home or self-care (01) | DRG 871 ==
LOC: ER 15:06 → ERHOLD 18:57 → IMCU 21:15 → MED/SURG2 04-27 20:38
PROVIDERS: ADMIT Internal Medicine; ATTEND Internal Medicine
PROC: 02HV33Z Insertion of Infusion Device into Superior Vena Cava, Percutaneous Approach (ICD-10-PCS; principal; 2020-04-10)
PROC: 02HV33Z Insertion of Infusion Device into Superior Vena Cava, Percutaneous Approach (ICD-10-PCS; 2020-04-14)
PROC: 009U3ZX Drainage of Spinal Canal, Percutaneous Approach, Diagnostic (ICD-10-PCS; 2020-04-22)
PROC: 02HV33Z Insertion of Infusion Device into Superior Vena Cava, Percutaneous Approach (ICD-10-PCS; 2020-04-25)
DX: A41.9 Sepsis, unspecified organism (principal); G93.41 Metabolic encephalopathy; K85.20 Alcohol induced acute pancreatitis without necrosis or infection; J96.01 Acute respiratory failure with hypoxia; B00.4 Herpesviral encephalitis; E87.1 Hypo-osmolality and hyponatremia; N17.9 Acute kidney failure, unspecified; E87.2 Acidosis; D68.51 Activated protein C resistance; F10.139 Alcohol abuse with withdrawal, unspecified; E44.0 Moderate protein-calorie malnutrition; R65.20 Severe sepsis without septic shock; E83.51 Hypocalcemia; G47.33 Obstructive sleep apnea (adult) (pediatric); Z99.89 Dependence on other enabling machines and devices; Z68.38 Body mass index [BMI] 38.0-38.9, adult; Z86.718 Personal history of other venous thrombosis and embolism; I25.10 Atherosclerotic heart disease of native coronary artery without angina pectoris; J44.9 Chronic obstructive pulmonary disease, unspecified; D69.6 Thrombocytopenia, unspecified; I12.9 Hypertensive chronic kidney disease with stage 1 through stage 4 chronic kidney disease, or unspecified chronic kidney disease; N18.30 Chronic kidney disease, stage 3 unspecified; Z20.822 Contact with and (suspected) exposure to COVID-19; Z85.828 Personal history of other malignant neoplasm of skin; I27.20 Pulmonary hypertension, unspecified; E66.01 Morbid (severe) obesity due to excess calories
CPT/HCPCS: 36415; 36569; 36600; 62328; 70450; 70496; 70547; 70551; 70553; 71045; 71250; 71260; 74019; 74176; 74183; 74470; 76705; 80048; 80053; 80061; 81001; 82040; 82140; 82150; 82306; 82310; 82378; 82533; 82550; 82553; 82607; 82728; 82746; 82784; 82805; 82945; 82948; 83001; 83003; 83036; 83540; 83605; 83615; 83690; 83735; 83880; 83970; 84100; 84145; 84146; 84157; 84403; 84436; 84443; 84466; 84479; 84484; 85025; 85045; 85610; 86301; 86592; 86789; 87040; 87070; 87086; 87102; 87116; 87205; 87206; 87390; 87476; 87529; 87536; 89051; 93005; 93306; 93971; 94060; 94640; 94660; 95819; 97139; 99284; G0433; G0435; J0360; J0610; J0696; J0834; J1100; J1450; J1650; J1756; J1815; J1940; J2060; J2270; J2405; J2550; J3411; J3420; J3475; J3480; J7030; J7050; J7121; Q0177; Q9967; U0002